=== PATIENT | female | born 1945 | race Caucasian/White ===

== ENCOUNTER 2016-09-04 20:24 | Observation (INO) | payer OTHER ==
[~2016-09-04] VITALS: Ht 167.6 cm; Wt 114.1 kg
[~2016-09-04 20:24] MED LIST: ADVAIR 250/501 DISK IH; ADVAIR HFA120 INHAL1 IH; ALLOPURINOL100 MG PO; AMITRIPTYLINE H25 MG; AMITRIPTYLINE H50 MG PO; AMLODIPINE BESYL5 MG PO; AMOXICILLIN500 MG; AMOXICILLIN500 MG PO; AUGMENTIN875 MG PO; AZITHROMYCIN250 MG; BUMETANIDE1 MG PO; BUMEX1 MG PO; BYDUREON 2 MG; CALCITRIOL0.25 MCG PO; CARTIA XT120 MG PO; CEFTIN250 MG PO; CEPHALEXIN500 MG PO; CIPRO500 MG PO; CIPROFLOXACIN500 M1 PO; CLEOCIN300 MG PO; CLINDAMYCIN HC300 MG PO; CLOBETASOL PROP60 GM TP; COLACE100 MG PO; COLCHICINE0.6 M1 PO; COLCRYS0.6 MG; COLCRYS0.6 MG PO; COUMADIN1 MG PO; COUMADIN4 MG PO; COUMADIN5 MG PO; COUMADIN7.5 MG PO; COZAAR25 MG PO; CYANOCOBAL1000 MCG/2 IM; CYMBALTA30 MG PO; CYMBALTA60 MG PO; DIOVAN HCT 31 TABLE1; DIOVAN40 MG PO; DOCUSATE SODIU100 MG PO; DOK PLUS TABLE1 EACH PO; DULOXETINE HCL30 MG PO; DUONEB 2.5-0.5 M3 ML AEROSOL; DUONEB 2.5-0.5 M3 ML IH; DUREZOL 0.100 DROP/5; ELAVIL25 MG PO; ELAVIL50 MG PO; ENDOCET 5-3251 EACH; ENDOCET 5-3251 EACH PO; ERGOCALCIF50000 UNIT; ERGOCALCIF50000 UNIT PO; ERYTHROMYCIN O3.5 GM RIGHT EYE; ESCITALOPRAM OX20 MG; ESCITALOPRAM OX20 MG PO; EYE DROPS; FERROUS SULFAT324 M1 PO; FLAGYL500 MG; FUROSEMIDE20 MG PO; FUROSEMIDE40 MG; FUROSEMIDE40 MG PO; GABAPENTIN600 MG; GABAPENTIN600 MG PO; HYDROCHLOROTH12.5 M3 PO; HYDROCODON-ACE1 EAC7; HYDROCODON-ACE1 EAC7 PO; IBUPROFEN600 MG PO; INDOMETHACIN50 MG; KEFLEX500 MG PO; LASIX20 MG PO; LASIX40 MG PO; LEVEMIR FL100 UNIT/1 SC; LEVEMIR FL100 UNITS/; LEVEMIR FL100 UNITS/ SC; LEVEMIR100 UNIT/2 SC; LEVOFLOXACIN500 MG; LEVOFLOXACIN500 MG PO; LEXAPRO20 MG PO; LIDOCAINE20 MG/1 M5 PO; LIDODERM 5% P1 PATCH TD; LIDOPRO PATCH1 EACH TP; LISINOPRIL5 MG PO; LOVENOX300 MG/3 M SC; LYRICA150 MG PO; LYRICA50 MG PO; LYRICA75 MG PO; MAGNESIUM OXID200 MG PO; MAGNESIUM400 M1 PO; MIRAPEX0.5 MG PO; MYCOSTATIN15 GM PO; NEURONTIN100 MG PO; NEURONTIN400 MG PO; NORCO 5/3251 TABLET PO; NORVASC5 MG PO; NOVOLOG 10100 UNITS/ SC; NOVOLOG PE100 UNITS/ SC; NOVOLOG100 UNIT/1 SC; NYSTATIN15 G1 TP; OMEPRAZOLE20 MG PO; OMEPRAZOLE40 M1 PO; ONE TOUCH ULTRA TEST; OXYCODONE HCL5 M1 PO; OXYCODONE HCL5 MG PO; PERCOCET 5/31 TABLET PO; PLAVIX75 MG; POLYETHYLENE GL17 GM PO; PRAMIPEXOLE DI0.5 MG; PRAMIPEXOLE DI0.5 MG PO; PRAVACHOL10 MG PO; PRAVASTATIN SOD10 MG; PRAVASTATIN SOD10 MG PO; PRAVASTATIN SOD40 MG PO; PREDNISONE10 MG; PREDNISONE10 MG PO; PRILOSEC20 MG PO; PROAIR HFA8.5 GM IH; PROTONIX40 MG PO; PROVENTIL,2.5 MG/3 M IH; PROVENTIL2.5 MG/3 M IH; REQUIP0.5 MG PO; RESTORIL15 MG PO; SERTRALINE HCL50 MG PO; SPIRIVA RESPIMAT4 GM IH; TEMAZEPAM15 MG; TOBRADEX EYE DRO5 ML RIGHT EYE; TRAMADOL HCL50 MG PO; TYLENOL ARTHRI650 MG PO; TYLENOL EXTRA500 MG PO; VALIUM5 MG PO; VALSARTAN-HCTZ1 EAC3; VALSARTAN160 MG PO; VIBRA-TABS100 MG; VITAMIN C500 M1 PO; WARFARIN SODIU7.5 MG PO; WARFARIN SODIUM5 MG PO; ZOFRAN4 MG PO; ZOLOFT50 MG PO; ZYLOPRIM100 MG PO; [UNRECOGNIZED DRUG - SUPPLY]
[2016-09-05 00:43] LABS: HEMATOCRIT 40.4 % (36.0-46.0); MCH 28.6 PG (29.0-34.0); MCHC 30.9 G/DL (30.0-36.0); MCV 92.4 FL (83-99); MEAN PLAT.VOLUME 10.4 uM^3 (9.5-12.4); PLATELET COUNT 211 K/uL (156-360); RBC DIS.WIDTH-CV 17.9 % (11.8-14.6); RBC DIS.WIDTH-SD 58.1 % (39-53); RED BLOOD COUNT 4.37 M/uL (3.80-5.20); WHITE BLOOD COUNT 7.2 K/uL (4.1-10.2)
[2016-09-05 00:50] LABS: CHLORIDE 102 mEq/L (99-109); POTASSIUM 4.4 mEq/L (3.7-5.4); SODIUM 140 mEq/L (136-147)
[2016-09-05 00:52] LABS: GLUCOSE 197 mg/dL (70-99)
[2016-09-05 00:53] LABS: ANION GAP 14 MEQ/L (2-14)
[2016-09-05 00:56] LABS: GFR ESTIMATE (CALCULATED) 18 mL/min/
[2016-09-05 00:57] LABS: UREA NITROGEN (BUN) 44 mg/dL (9-23)
[2016-09-05 01:13] LABS: TROP-I INTERPRETATION NEGATIVE; TROPONIN-I < 0.01 ng/mL (0.0-0.30)
[2016-09-05 06:26] LABS: INTER. NORMALIZED RATIO 1.3; PROTHROMBIN TIME 13.4 (9.2-11.2); PTT 30.9 (25-32)
[2016-09-05 07:30] VITALS: BP 162/69
[2016-09-05 08:32] LABS: POINT-OF-CARE METER ID UU13113807
[2016-09-05] MEDS ORDERED: NOVOLOG PE100 UNITS/ SC (11:21)
[2016-09-05] MEDS ORDERED: LEVEMIR100 UNIT/2 SC (11:22)
[2016-09-05] MEDS ORDERED: LASIX20 MG PO (11:23)
[2016-09-05] MEDS ORDERED: COUMADIN5 MG PO (11:24)
[2016-09-05 11:45] VITALS: BP 162/88
[2016-09-05 11:48] LABS: POINT-OF-CARE METER ID UU13113807
[2016-09-05 13:12] LABS: TROP-I INTERPRETATION NEGATIVE; TROPONIN-I < 0.01 ng/mL (0.0-0.30)
[2016-09-05 13:49] LABS: ADD MIUA? YES; BILIRUBIN NEGATIVE; BLOOD NEGATIVE; COLOR YELLOW ((YELLOW)); GLUCOSE (STRIP) 250; KETONES NEGATIVE; LEUKOCYTES NEGATIVE; NITRITE NEGATIVE; PH, URINE 6.5 (5-8); PROTEIN (STRIP) 100; SPECIFIC GRAVITY 1.016 (1.000-1.030); UROBILINOGEN 0.2 MG/DL (0.2-1.0)
[2016-09-05 13:55] LABS: BACTERIA NONE SEEN; CASTS NONE SEEN /LPF; CRYSTALS NONE SEEN; EPITHELIAL CELLS RARE; MUCUS NONE SEEN; PATHOLOGICAL CAST NONE SEEN; RED BLOOD CELLS 0-5 /HPF (0-5); SMALL ROUND CELL NONE SEEN; UCUL ADDED? NO; WHITE BLOOD CELLS 0-5 /HPF (0-5); YEAST-LIKE CELL NONE SEEN
[2016-09-05 15:52] VITALS: BP 112/63
[2016-09-05 17:05] LABS: POINT-OF-CARE METER ID UU13113807
[2016-09-05 19:06] LABS: TROP-I INTERPRETATION NEGATIVE; TROPONIN-I < 0.01 ng/mL (0.0-0.30)
[2016-09-05 19:27] LABS: ANION GAP 12 MEQ/L (2-14); CHLORIDE 104 MEQ/L (99-109); GFR ESTIMATE (CALCULATED) 37 mL/min/; GLUCOSE 174 mg/dL (70-99); POTASSIUM 4.2 MEQ/L (3.7-5.4); SAMPLE HEMOLYSIS CHECK 0; SAMPLE ICTERIC CHECK 0; SAMPLE LIPEMIA CHECK 0; SODIUM 143 MEQ/L (136-147); UREA NITROGEN (BUN) 46 mg/dL (9-23); URIC ACID 5.6 mg/dL (3.1-9.2)
[2016-09-05 20:09] LABS: POINT-OF-CARE METER ID UU13113807
[2016-09-05 20:48] VITALS: BP 136/81
[2016-09-06 00:05] VITALS: BP 139/55
[2016-09-06 04:00] VITALS: BP 148/79
[2016-09-06 04:27] LABS: HEMATOCRIT 36.9 % (36.0-46.0); MCH 28.4 PG (29.0-34.0); MCHC 30.9 G/DL (30.0-36.0); MEAN PLAT.VOLUME 10.5 uM^3 (9.5-12.4); PLATELET COUNT 170 K/uL (156-360); RBC DIS.WIDTH-CV 17.7 % (11.8-14.6); RBC DIS.WIDTH-SD 57.2 % (39-53); RED BLOOD COUNT 4.01 M/uL (3.80-5.20); WHITE BLOOD COUNT 6.5 K/uL (4.1-10.2)
[2016-09-06 04:37] LABS: INTER. NORMALIZED RATIO 1.2; PROTHROMBIN TIME 12.2 (9.2-11.2)
[2016-09-06 04:39] LABS: CHLORIDE 108 mEq/L (99-109); POTASSIUM 4.3 mEq/L (3.7-5.4); SODIUM 143 mEq/L (136-147)
[2016-09-06 04:41] LABS: GLUCOSE 251 mg/dL (70-99)
[2016-09-06 04:42] LABS: ANION GAP 11 MEQ/L (2-14)
[2016-09-06 04:45] LABS: GFR ESTIMATE (CALCULATED) 34 mL/min/
[2016-09-06 04:46] LABS: UREA NITROGEN (BUN) 49 mg/dL (9-23)
[2016-09-06 05:47] LABS: IRON 34 MCG/DL (35-150)
[2016-09-06 06:08] LABS: UR CREATININE CONCENTRATION 84.2 MG/DL
[2016-09-06 06:35] LABS: POINT-OF-CARE METER ID UU13113807
[2016-09-06 07:44] LABS: FERRITIN 13 NG/ML (10-291)
[2016-09-06 07:48] LABS: INTACT PARATHYROID HORMONE 142 pg/mL (10-69)
[2016-09-06 08:00] VITALS: BP 126/56
[2016-09-06 08:11] LABS: POINT-OF-CARE METER ID UU13113807
[2016-09-06] MEDS ORDERED: AMOX TR-K CLV1 EAC4 PO (10:45)
[2016-09-06 11:57] VITALS: BP 124/67
[2016-09-06 13:12] LABS: POINT-OF-CARE METER ID UU13113807
== END 2016-09-06 12:51 | disposition home or self-care (01) ==
LOC: EME 20:24 → EDOF 09-05 05:40 → 4SOUTH 09-05 05:40
PROVIDERS: Emergency Medicine; Hospitalist; Internal Medicine; Internal Medicine Nephrology; Student in an Organized Health Care Education/Training Program
DX: M79.89 Other specified soft tissue disorders (principal); L03.115 Cellulitis of right lower limb; N17.9 Acute kidney failure, unspecified; E11.22 Type 2 diabetes mellitus with diabetic chronic kidney disease; N18.3 Chronic kidney disease, stage 3 (moderate); R79.89 Other specified abnormal findings of blood chemistry; R06.09 Other forms of dyspnea; I27.2 Other secondary pulmonary hypertension; E61.1 Iron deficiency; N25.81 Secondary hyperparathyroidism of renal origin; J44.9 Chronic obstructive pulmonary disease, unspecified; I45.9 Conduction disorder, unspecified; G89.29 Other chronic pain; Z86.718 Personal history of other venous thrombosis and embolism; Z79.01 Long term (current) use of anticoagulants; I48.0 Paroxysmal atrial fibrillation; Z95.828 Presence of other vascular implants and grafts; Z95.820 Peripheral vascular angioplasty status with implants and grafts; Z96.643 Presence of artificial hip joint, bilateral; Z82.49 Family history of ischemic heart disease and other diseases of the circulatory system; Z83.3 Family history of diabetes mellitus; Z87.891 Personal history of nicotine dependence; Z95.0 Presence of cardiac pacemaker; Z88.8 Allergy status to other drugs, medicaments and biological substances; Z91.013 Allergy to seafood; Z91.018 Allergy to other foods
CPT/HCPCS: 70490; 71010; 76770; 80048; 80069; 81003; 82306; 82570; 82607; 82728; 82746; 82948; 83540; 83880; 83970; 84156; 84443; 84466; 84484; 84550; 85027; 85610; 85730; 93005; 93970; 94640; 94640 76; 99281; 99285; G0378; J1815; J1940

== ENCOUNTER 2016-09-22 01:14 | Emergency (ER) | payer OTHER ==
[~2016-09-22] VITALS: Ht 167.6 cm; Wt 118.0 kg
[~2016-09-22 01:14] MED LIST changes: +AMOX TR-K CLV1 EAC4 PO
[2016-09-22 02:08] LABS: HEMATOCRIT 34.2 % (36.0-46.0); MCH 28.6 PG (29.0-34.0); MCHC 31.6 G/DL (30.0-36.0); MCV 90.7 FL (83-99); MEAN PLAT.VOLUME 10.8 uM^3 (9.5-12.4); PLATELET COUNT 162 K/uL (156-360); RED BLOOD COUNT 3.77 M/uL (3.80-5.20); WHITE BLOOD COUNT 7.2 K/uL (4.1-10.2)
[2016-09-22 02:15] LABS: CHLORIDE 104 mEq/L (99-109); POTASSIUM 4.9 mEq/L (3.7-5.4); SODIUM 139 mEq/L (136-147)
[2016-09-22 02:17] LABS: GLUCOSE 280 mg/dL (70-99)
[2016-09-22 02:19] LABS: ANION GAP 11 MEQ/L (2-14)
[2016-09-22 02:21] LABS: GFR ESTIMATE (CALCULATED) 30 mL/min/
[2016-09-22 02:28] LABS: TROP-I INTERPRETATION NEGATIVE; TROPONIN-I < 0.01 ng/mL (0.0-0.30)
[2016-09-22 02:30] LABS: UREA NITROGEN (BUN) 53 mg/dL (9-23)
[2016-09-22 02:34] LABS: TOTAL BILIRUBIN 0.3 mg/dL (0.0-1.0)
[2016-09-22 02:35] LABS: ALKALINE PHOSPHATASE 118 IU/L (3-129); INTER. NORMALIZED RATIO 1.5; PROTHROMBIN TIME 15.5 (9.2-11.2)
[2016-09-22 02:38] LABS: DIRECT BILIRUBIN 0.1 mg/dL (0.0-0.3)
[2016-09-22 04:01] VITALS: BP 129/77
== END 2016-09-22 04:04 | disposition home or self-care (01) ==
LOC: EME 01:14
DX: R60.9 Edema, unspecified (principal); N28.9 Disorder of kidney and ureter, unspecified; I25.10 Atherosclerotic heart disease of native coronary artery without angina pectoris; E11.9 Type 2 diabetes mellitus without complications; K21.9 Gastro-esophageal reflux disease without esophagitis; E78.5 Hyperlipidemia, unspecified; I10 Essential (primary) hypertension; Z87.442 Personal history of urinary calculi; Z87.891 Personal history of nicotine dependence; I25.2 Old myocardial infarction; Z86.718 Personal history of other venous thrombosis and embolism; Z96.643 Presence of artificial hip joint, bilateral; Z95.0 Presence of cardiac pacemaker; Z96.611 Presence of right artificial shoulder joint; Z79.4 Long term (current) use of insulin; Z79.01 Long term (current) use of anticoagulants
CPT/HCPCS: 71020; 80048; 80076; 83880; 84484; 85027; 85610; 93005; 99281; 99284; J1940

== ENCOUNTER 2016-10-16 20:16 | Observation (INO) | payer OTHER ==
[~2016-10-16] VITALS: Ht 167.6 cm; Wt 113.0 kg
[2016-10-16 21:18] LABS: HEMATOCRIT 38.5 % (36.0-46.0); MCH 28.5 PG (29.0-34.0); MCHC 31.4 G/DL (30.0-36.0); MCV 90.6 FL (83-99); MEAN PLAT.VOLUME 9.7 uM^3 (9.5-12.4); PLATELET COUNT 208 K/uL (156-360); RBC DIS.WIDTH-CV 16.6 % (11.8-14.6); RED BLOOD COUNT 4.25 M/uL (3.80-5.20)
[2016-10-16 21:19] LABS: WHITE BLOOD COUNT 9.9 K/uL (4.1-10.2)
[2016-10-16 21:24] LABS: CHLORIDE 104 mEq/L (99-109); POTASSIUM 4.5 mEq/L (3.7-5.4); SODIUM 142 mEq/L (136-147)
[2016-10-16 21:25] LABS: GLUCOSE 171 mg/dL (70-99)
[2016-10-16 21:27] LABS: ANION GAP 11 MEQ/L (2-14)
[2016-10-16 21:29] LABS: GFR ESTIMATE (CALCULATED) 20 mL/min/
[2016-10-16 21:30] LABS: UREA NITROGEN (BUN) 59 mg/dL (9-23)
[2016-10-16 21:37] LABS: TROP-I INTERPRETATION NEGATIVE; TROPONIN-I 0.02 ng/mL (0.0-0.30)
[2016-10-16] MEDS ORDERED: WARFARIN SODIUM5 MG PO (23:11)
[2016-10-16] MEDS ORDERED: PRAVASTATIN SOD40 MG PO (23:12)
[2016-10-16] MEDS ORDERED: LEVEMIR FL100 UNIT/1 SC ×2 (23:15→23:19)
[2016-10-17 02:45] LABS: ADD MIUA? NO; BILIRUBIN NEGATIVE; BLOOD NEGATIVE; COLOR STRAW ((YELLOW)); GLUCOSE (STRIP) NEGATIVE; KETONES NEGATIVE; LEUKOCYTES NEGATIVE; NITRITE NEGATIVE; PROTEIN (STRIP) 30; SPECIFIC GRAVITY 1.009 (1.000-1.030); UCUL ADDED? NO; UROBILINOGEN 0.2 MG/DL (0.2-1.0)
[2016-10-17 03:27] VITALS: BP 159/67
[2016-10-17 03:45] LABS: INTER. NORMALIZED RATIO 1.5; PROTHROMBIN TIME 15.8 (9.2-11.2)
[2016-10-17 08:16] LABS: POINT-OF-CARE METER ID UU13113831
[2016-10-17 08:45] VITALS: BP 148/67
[2016-10-17 09:55] LABS: ANION GAP 6 MEQ/L (2-14); CHLORIDE 105 MEQ/L (99-109); POTASSIUM 4.6 MEQ/L (3.7-5.4); SAMPLE HEMOLYSIS CHECK 0; SAMPLE ICTERIC CHECK 0; SAMPLE LIPEMIA CHECK 0; SODIUM 140 MEQ/L (136-147)
[2016-10-17 10:00] LABS: GFR ESTIMATE (CALCULATED) 47 mL/min/; GLUCOSE 128 mg/dL (70-99); UREA NITROGEN (BUN) 47 mg/dL (9-23)
== END 2016-10-17 11:22 | disposition home or self-care (01) ==
LOC: EME 20:16 → EDOF 10-17 01:51 → 5WEST 10-17 02:37
PROVIDERS: Emergency Medicine; Hospitalist; Nurse Practitioner Family
DX: N17.9 Acute kidney failure, unspecified (principal); I13.0 Hypertensive heart and chronic kidney disease with heart failure and stage 1 through stage 4 chronic kidney disease, or unspecified chronic kidney disease; I50.9 Heart failure, unspecified; E11.21 Type 2 diabetes mellitus with diabetic nephropathy; E11.22 Type 2 diabetes mellitus with diabetic chronic kidney disease; N18.9 Chronic kidney disease, unspecified; N25.81 Secondary hyperparathyroidism of renal origin; I48.0 Paroxysmal atrial fibrillation; M79.7 Fibromyalgia; R19.7 Diarrhea, unspecified; R11.2 Nausea with vomiting, unspecified; J44.9 Chronic obstructive pulmonary disease, unspecified; Z95.0 Presence of cardiac pacemaker; I25.2 Old myocardial infarction; Z86.718 Personal history of other venous thrombosis and embolism; F32.9 Major depressive disorder, single episode, unspecified; G89.29 Other chronic pain; K21.9 Gastro-esophageal reflux disease without esophagitis; I73.9 Peripheral vascular disease, unspecified
CPT/HCPCS: 71020; 80048; 81003; 82948; 84484; 85027; 85610; 93005; 94640; 99281; 99285; G0378; J1815; J2060; J7030; J7040

== ENCOUNTER 2016-10-21 19:12 | Emergency (ER) | payer OTHER ==
[~2016-10-21] VITALS: Ht 167.6 cm; Wt 111.4 kg
[2016-10-21 20:18] LABS: INTER. NORMALIZED RATIO 1.1; PROTHROMBIN TIME 10.7 (9.2-11.2)
[2016-10-21 20:23] LABS: CHLORIDE 107 mEq/L (99-109); POTASSIUM 4.4 mEq/L (3.7-5.4); SODIUM 137 mEq/L (136-147)
[2016-10-21 20:25] LABS: GLUCOSE 331 mg/dL (70-99)
[2016-10-21 20:26] LABS: ANION GAP 10 MEQ/L (2-14)
[2016-10-21 20:27] LABS: TOTAL BILIRUBIN 0.4 mg/dL (0.0-1.0)
[2016-10-21 20:28] LABS: ALKALINE PHOSPHATASE 107 IU/L (3-129)
[2016-10-21 20:29] LABS: GFR ESTIMATE (CALCULATED) 40 mL/min/
[2016-10-21 20:30] VITALS: BP 145/78
[2016-10-21 20:30] LABS: TROP-I INTERPRETATION NEGATIVE; TROPONIN-I 0.01 ng/mL (0.0-0.30); UREA NITROGEN (BUN) 55 mg/dL (9-23)
[2016-10-21 20:45] LABS: HEMATOCRIT 34.4 % (36.0-46.0); MCH 28.3 PG (29.0-34.0); MCHC 31.4 G/DL (30.0-36.0); MCV 90.3 FL (83-99); RBC DIS.WIDTH-CV 16.5 % (11.8-14.6); RBC DIS.WIDTH-SD 53.1 % (39-53); RED BLOOD COUNT 3.81 M/uL (3.80-5.20); WHITE BLOOD COUNT 8.8 K/uL (4.1-10.2)
[2016-10-21 20:48] LABS: EOSINOPHIL (%) 2.2 % (0-5); EOSINOPHIL COUNT 0.2 K/uL (0-0.3); IMMATURE GRANULOCYTE (%) 0.2 % (0.0-0.7); IMMATURE GRANULOCYTE COUNT 0.2 K/uL; LYMPHOCYTE COUNT 1.4 K/uL (1.0-2.8); MONOCYTE (%) 9.4 % (3-12); MONOCYTE COUNT 0.8 K/uL (0-0.8); NEUTROPHIL (%) 71.9 % (45-76); NEUTROPHIL COUNT 6.4 K/uL (1.8-6.4)
[2016-10-21] MEDS ORDERED: ALBUTEROL2.5 MG/3 M IH (21:01)
[2016-10-21] MEDS ORDERED: ROBITUSSIN AC,T10 ML PO (21:01)
[2016-10-21 21:18] LABS: MEAN PLAT.VOLUME 10.5 uM^3 (9.5-12.4); PLAT.SUFFICIENCY DECREASED; PLATELET COUNT 127 K/uL (156-360)
== END 2016-10-21 21:54 | disposition home or self-care (01) ==
LOC: EME 19:12
PROVIDERS: Emergency Medicine
DX: J44.1 Chronic obstructive pulmonary disease with (acute) exacerbation (principal); J06.9 Acute upper respiratory infection, unspecified; E11.65 Type 2 diabetes mellitus with hyperglycemia; I10 Essential (primary) hypertension; E78.5 Hyperlipidemia, unspecified; Z79.4 Long term (current) use of insulin; Z79.01 Long term (current) use of anticoagulants; Z86.718 Personal history of other venous thrombosis and embolism; Z95.0 Presence of cardiac pacemaker; Z87.891 Personal history of nicotine dependence
CPT/HCPCS: 71010; 80048; 80053; 83605; 83880; 84484; 85025; 85027; 85610; 87040; 94640; 99281; 99284; J2270; J2405

== ENCOUNTER 2016-10-23 03:19 | Observation (INO) | payer OTHER ==
[~2016-10-23] VITALS: Ht 167.6 cm; Wt 103.2 kg
[~2016-10-23 03:19] MED LIST changes: +ALBUTEROL2.5 MG/3 M IH; +ROBITUSSIN AC,T10 ML PO
[2016-10-23 03:54] LABS: HEMATOCRIT 33.7 % (36.0-46.0); MCH 28.6 PG (29.0-34.0); MCHC 31.2 G/DL (30.0-36.0); MCV 91.8 FL (83-99); MEAN PLAT.VOLUME 10.9 uM^3 (9.5-12.4); PLATELET COUNT 148 K/uL (156-360); RBC DIS.WIDTH-CV 16.5 % (11.8-14.6); RBC DIS.WIDTH-SD 53.2 % (39-53); RED BLOOD COUNT 3.67 M/uL (3.80-5.20); WHITE BLOOD COUNT 9.2 K/uL (4.1-10.2)
[2016-10-23] MEDS ORDERED: AMOX TR-K CLV1 EAC4 PO (03:58)
[2016-10-23] MEDS ORDERED: FUROSEMIDE40 MG PO (03:59)
[2016-10-23 04:06] LABS: CHLORIDE 107 mEq/L (99-109); SODIUM 140 mEq/L (136-147)
[2016-10-23 04:09] LABS: ANION GAP 9 MEQ/L (2-14)
[2016-10-23 04:09] LABS: INTER. NORMALIZED RATIO 1.1; PROTHROMBIN TIME 10.7 (9.2-11.2); PTT 23.3 (25-32)
[2016-10-23 04:12] LABS: GFR ESTIMATE (CALCULATED) 43 mL/min/; UREA NITROGEN (BUN) 55 mg/dL (9-23)
[2016-10-23 04:16] LABS: TROP-I INTERPRETATION NEGATIVE; TROPONIN-I 0.01 ng/mL (0.0-0.30)
[2016-10-23 04:18] LABS: GLUCOSE 127 mg/dL (70-99); POTASSIUM 5.3 mEq/L (3.7-5.4)
[2016-10-23 06:11] VITALS: BP 134/91
[2016-10-23 06:14] VITALS: BP 134/91
[2016-10-23 07:47] VITALS: BP 141/63
[2016-10-23 07:55] LABS: POINT-OF-CARE METER ID UU14162513
[2016-10-23] MEDS ORDERED: PRAVACHOL10 MG PO (12:15)
[2016-10-23] MEDS ORDERED: NORCO 5/3251 TABLET PO (12:18)
[2016-10-23] MEDS ORDERED: ERGOCALCIF50000 UNIT PO (12:19)
[2016-10-23 12:41] VITALS: BP 142/56
[2016-10-23 12:46] LABS: POINT-OF-CARE METER ID UU14162513
[2016-10-23] MEDS ORDERED: DUONEB 2.5-0.5 M3 ML AEROSOL (14:47)
[2016-10-23] MEDS ORDERED: ALBUTEROL2.5 MG/3 M IH (14:47)
== END 2016-10-23 16:18 | disposition home or self-care (01) ==
LOC: EME → EDBD 03:19 → EDOF 04:40 → 5WEST 05:56
PROVIDERS: Emergency Medicine; Hospitalist
DX: J44.1 Chronic obstructive pulmonary disease with (acute) exacerbation (principal); Z91.19 Patient's noncompliance with other medical treatment and regimen; Z99.81 Dependence on supplemental oxygen; I12.9 Hypertensive chronic kidney disease with stage 1 through stage 4 chronic kidney disease, or unspecified chronic kidney disease; N18.3 Chronic kidney disease, stage 3 (moderate); E11.22 Type 2 diabetes mellitus with diabetic chronic kidney disease; I25.10 Atherosclerotic heart disease of native coronary artery without angina pectoris; I48.0 Paroxysmal atrial fibrillation; I27.2 Other secondary pulmonary hypertension; E55.9 Vitamin D deficiency, unspecified; D64.9 Anemia, unspecified; I25.2 Old myocardial infarction; G89.29 Other chronic pain; M79.7 Fibromyalgia; M19.90 Unspecified osteoarthritis, unspecified site; E66.9 Obesity, unspecified; Z68.36 Body mass index [BMI] 36.0-36.9, adult; E78.5 Hyperlipidemia, unspecified; M10.9 Gout, unspecified; I73.9 Peripheral vascular disease, unspecified; G25.81 Restless legs syndrome; Z86.718 Personal history of other venous thrombosis and embolism
CPT/HCPCS: 71010; 80048; 82948; 84484; 85027; 85610; 85730; 93005; 94640; 94640 76; 99202; 99281; 99285; G0378; J1650; J1815; J2930

== ENCOUNTER 2016-12-02 21:19 | Emergency (ER) | payer OTHER ==
[~2016-12-02] VITALS: Ht 167.6 cm; Wt 119.6 kg
[2016-12-02 21:55] LABS: HEMATOCRIT 35.8 % (36.0-46.0); MCH 28.2 PG (29.0-34.0); MCV 90.9 FL (83-99); PLATELET COUNT 179 K/uL (156-360); RBC DIS.WIDTH-CV 16.1 % (11.8-14.6); RBC DIS.WIDTH-SD 53.7 % (39-53); RED BLOOD COUNT 3.94 M/uL (3.80-5.20); WHITE BLOOD COUNT 9.2 K/uL (4.1-10.2)
[2016-12-02 22:08] LABS: CHLORIDE 105 mEq/L (99-109); POTASSIUM 4.6 mEq/L (3.7-5.4); SODIUM 141 mEq/L (136-147)
[2016-12-02 22:09] LABS: GLUCOSE 142 mg/dL (70-99)
[2016-12-02 22:11] LABS: ANION GAP 10 MEQ/L (2-14)
[2016-12-02 22:13] LABS: GFR ESTIMATE (CALCULATED) 40 mL/min/
[2016-12-02 22:14] LABS: UREA NITROGEN (BUN) 54 mg/dL (9-23)
[2016-12-02] MEDS ORDERED: KEFLEX500 MG PO (23:06)
[2016-12-02 23:23] VITALS: BP 149/66
== END 2016-12-02 23:26 | disposition home or self-care (01) ==
LOC: EME 21:19
PROVIDERS: Emergency Medicine
DX: L03.031 Cellulitis of right toe (principal); R60.0 Localized edema; I11.0 Hypertensive heart disease with heart failure; I50.9 Heart failure, unspecified; J45.909 Unspecified asthma, uncomplicated; G89.29 Other chronic pain; E11.9 Type 2 diabetes mellitus without complications; M79.7 Fibromyalgia; E78.5 Hyperlipidemia, unspecified; I25.2 Old myocardial infarction; Z87.442 Personal history of urinary calculi; Z86.718 Personal history of other venous thrombosis and embolism; Z95.0 Presence of cardiac pacemaker; Z96.643 Presence of artificial hip joint, bilateral; Z96.611 Presence of right artificial shoulder joint; Z87.891 Personal history of nicotine dependence
CPT/HCPCS: 80048; 83880; 85027; 99281; 99284; J1940

== ENCOUNTER 2016-12-26 20:25 | Observation (INO) | payer OTHER ==
[~2016-12-26] VITALS: Ht 170.2 cm; Wt 117.5 kg
[2016-12-26 21:39] LABS: EOSINOPHIL (%) 3.7 % (0-5); EOSINOPHIL COUNT 0.3 K/uL (0-0.3); IMMATURE GRANULOCYTE (%) 0.4 % (0.0-0.7); INSTRUMENT ABS NEUTROPHIL CT 5.3 K/uL; LYMPHOCYTE COUNT 1.3 K/uL (1.0-2.8); MCH 27.8 PG (29.0-34.0); MCHC 30.8 G/DL (30.0-36.0); MCV 90.3 FL (83-99); MEAN PLAT.VOLUME 10.4 uM^3 (9.5-12.4); MONOCYTE (%) 7.1 % (3-12); MONOCYTE COUNT 0.5 K/uL (0-0.8); NEUTROPHIL (%) 71.2 % (45-76); NEUTROPHIL COUNT 5.3 K/uL (1.8-6.4); PLATELET COUNT 152 K/uL (156-360); RBC DIS.WIDTH-CV 16.2 % (11.8-14.6); RBC DIS.WIDTH-SD 53.4 % (39-53); RED BLOOD COUNT 4.32 M/uL (3.80-5.20); WHITE BLOOD COUNT 7.5 K/uL (4.1-10.2)
[2016-12-26 21:52] LABS: CHLORIDE 104 mEq/L (99-109); POTASSIUM 4.1 mEq/L (3.7-5.4); SODIUM 141 mEq/L (136-147)
[2016-12-26 21:53] LABS: GLUCOSE 298 mg/dL (70-99)
[2016-12-26 21:55] LABS: ANION GAP 12 MEQ/L (2-14)
[2016-12-26 21:57] LABS: GFR ESTIMATE (CALCULATED) 37 mL/min/
[2016-12-26 21:58] LABS: UREA NITROGEN (BUN) 38 mg/dL (9-23)
[2016-12-26 22:01] LABS: TROP-I INTERPRETATION NEGATIVE; TROPONIN-I 0.02 ng/mL (0.0-0.30)
[2016-12-26 22:26] LABS: D-DIMER ELISA 1.56 mg/L FEU (< 0.57)
[2016-12-27 04:33] LABS: INTER. NORMALIZED RATIO 2.2; PROTHROMBIN TIME 22.7 (9.2-11.2)
[2016-12-27 04:40] LABS: INFLUENZA A VIRAL ANTIGEN NEGATIVE; INFLUENZA B VIRAL ANTIGEN NEGATIVE
[2016-12-27 05:23] VITALS: BP 138/66
[2016-12-27] MEDS ORDERED: SPIRIVA RESPIMAT4 GM IH (11:10)
[2016-12-27 11:34] VITALS: BP 161/72
== END 2016-12-27 15:38 | disposition home health service (06) ==
LOC: EME 20:25 → EDOF 12-27 03:33 → 5WEST 12-27 05:17
PROVIDERS: Emergency Medicine; Hospitalist; Physician Assistant Medical
DX: R06.02 Shortness of breath (principal); M79.89 Other specified soft tissue disorders; Z91.19 Patient's noncompliance with other medical treatment and regimen; R19.7 Diarrhea, unspecified; I48.0 Paroxysmal atrial fibrillation; I27.2 Other secondary pulmonary hypertension; I12.9 Hypertensive chronic kidney disease with stage 1 through stage 4 chronic kidney disease, or unspecified chronic kidney disease; N18.3 Chronic kidney disease, stage 3 (moderate); J44.9 Chronic obstructive pulmonary disease, unspecified; Z99.81 Dependence on supplemental oxygen; E11.40 Type 2 diabetes mellitus with diabetic neuropathy, unspecified; I73.9 Peripheral vascular disease, unspecified; M79.7 Fibromyalgia; G89.29 Other chronic pain; I25.10 Atherosclerotic heart disease of native coronary artery without angina pectoris; M10.9 Gout, unspecified; Z68.41 Body mass index [BMI] 40.0-44.9, adult; E66.01 Morbid (severe) obesity due to excess calories; M19.90 Unspecified osteoarthritis, unspecified site; G25.81 Restless legs syndrome; Z87.891 Personal history of nicotine dependence; Z79.4 Long term (current) use of insulin; Z95.0 Presence of cardiac pacemaker
CPT/HCPCS: 71010; 71275; 80048; 82948; 83880; 84484; 85025; 85379; 85610; 87502; 93005; 93970; 94640; 94640 76; 99202; 99281; 99285; G0378; J1815; J7030

== ENCOUNTER 2017-02-22 10:31 | Emergency (ER) | payer OTHER ==
[~2017-02-22] VITALS: Ht 167.6 cm; Wt 116.6 kg
[2017-02-22 12:11] LABS: ADD MIUA? YES; BILIRUBIN NEGATIVE; BLOOD NEGATIVE; COLOR YELLOW ((YELLOW)); GLUCOSE (STRIP) >=500; KETONES NEGATIVE; LEUKOCYTES TRACE; NITRITE NEGATIVE; PROTEIN (STRIP) 30; SPECIFIC GRAVITY 1.014 (1.000-1.030); UROBILINOGEN 0.2 MG/DL (0.2-1.0)
[2017-02-22 12:42] LABS: EOSINOPHIL (%) 0 % (0-5); HEMATOCRIT 38.8 % (36.0-46.0); IMMATURE GRANULOCYTE (%) 0.8 % (0.0-0.7); IMMATURE GRANULOCYTE COUNT 0.1 K/uL; INSTRUMENT ABS NEUTROPHIL CT 7.4 K/uL; LYMPHOCYTE COUNT 0.4 K/uL (1.0-2.8); MCHC 31.4 G/DL (30.0-36.0); MEAN PLAT.VOLUME 10.3 uM^3 (9.5-12.4); MONOCYTE (%) 1.5 % (3-12); MONOCYTE COUNT 0.1 K/uL (0-0.8); NEUTROPHIL COUNT 7.4 K/uL (1.8-6.4); PLATELET COUNT 168 K/uL (156-360); RBC DIS.WIDTH-SD 54.5 % (39-53); RED BLOOD COUNT 4.36 M/uL (3.80-5.20); WHITE BLOOD COUNT 7.9 K/uL (4.1-10.2)
[2017-02-22 12:44] LABS: CARBON DIOXIDE (BICARBONATE) 34.1 MEQ/L (20-31)
[2017-02-22 12:56] LABS: CHLORIDE 98 mEq/L (99-109); POTASSIUM 4.1 mEq/L (3.7-5.4); SODIUM 135 mEq/L (136-147)
[2017-02-22 12:57] LABS: GLUCOSE 378 mg/dL (70-99)
[2017-02-22 12:58] LABS: BACTERIA 2+ /HPF; EPITHELIAL CELLS RARE /HPF; MUCUS NONE SEEN /LPF; RED BLOOD CELLS 0-5 /HPF (0-5)
[2017-02-22 12:59] LABS: ANION GAP 8 MEQ/L (2-14)
[2017-02-22 13:01] LABS: GFR ESTIMATE (CALCULATED) 32 mL/min/
[2017-02-22 13:02] LABS: UREA NITROGEN (BUN) 63 mg/dL (9-23)
[2017-02-22 14:30] LABS: POINT-OF-CARE METER ID UU13113747
[2017-02-22 14:37] LABS: POINT-OF-CARE METER ID UU13113778
[2017-02-22 15:15] VITALS: BP 140/60
== END 2017-02-22 15:16 | disposition home or self-care (01) ==
LOC: EME 10:31
PROVIDERS: Emergency Medicine
DX: E11.65 Type 2 diabetes mellitus with hyperglycemia (principal); E86.0 Dehydration; I12.9 Hypertensive chronic kidney disease with stage 1 through stage 4 chronic kidney disease, or unspecified chronic kidney disease; N18.9 Chronic kidney disease, unspecified; I25.2 Old myocardial infarction; K21.9 Gastro-esophageal reflux disease without esophagitis; J44.9 Chronic obstructive pulmonary disease, unspecified; J45.909 Unspecified asthma, uncomplicated; E78.5 Hyperlipidemia, unspecified; E11.40 Type 2 diabetes mellitus with diabetic neuropathy, unspecified; E11.22 Type 2 diabetes mellitus with diabetic chronic kidney disease; Z79.01 Long term (current) use of anticoagulants; Z87.442 Personal history of urinary calculi; Z79.4 Long term (current) use of insulin; Z87.891 Personal history of nicotine dependence
CPT/HCPCS: 80048; 81003; 82803; 82948; 85025; 99281; 99285; J7030

== ENCOUNTER 2017-03-26 15:35 | Inpatient (IN) | payer OTHER ==
[~2017-03-26] VITALS: Ht 175.3 cm; Wt 112.5 kg
[~2017-03-26 15:35] MED LIST changes: +PRAVACHOL40 MG PO
[2017-03-26 16:48] LABS: HEMATOCRIT 39.5 % (36.0-46.0); MCH 28.7 PG (29.0-34.0); MCHC 31.9 G/DL (30.0-36.0); MEAN PLAT.VOLUME 11.5 uM^3 (9.5-12.4); PLATELET COUNT 198 K/uL (156-360); RBC DIS.WIDTH-CV 17.2 % (11.8-14.6); RBC DIS.WIDTH-SD 57.2 % (39-53); RED BLOOD COUNT 4.39 M/uL (3.80-5.20); WHITE BLOOD COUNT 11.1 K/uL (4.1-10.2)
[2017-03-26 17:04] LABS: CHLORIDE 102 mEq/L (99-109); POTASSIUM 5.7 mEq/L (3.7-5.4); SODIUM 137 mEq/L (136-147)
[2017-03-26 17:06] LABS: GLUCOSE 200 mg/dL (70-99)
[2017-03-26 17:07] LABS: ANION GAP 19 MEQ/L (2-14)
[2017-03-26 17:10] LABS: GFR ESTIMATE (CALCULATED) 22 mL/min/
[2017-03-26 17:11] LABS: UREA NITROGEN (BUN) 53 mg/dL (9-23)
[2017-03-26 18:25] LABS: PATIENT PT 30.9 SEC
[2017-03-26 18:26] LABS: INTER. NORMALIZED RATIO 2.7; PROTHROMBIN TIME 30.9 SEC (10.2-12.9); PTT 37.5 SEC (25-37)
[2017-03-26 18:39] LABS: MAGNESIUM 1.9 mg/dL (1.3-2.7)
[2017-03-26 18:48] LABS: ADD MIUA? YES; BILIRUBIN NEGATIVE; BLOOD NEGATIVE; COLOR STRAW ((YELLOW)); GLUCOSE (STRIP) NEGATIVE; KETONES NEGATIVE; LEUKOCYTES TRACE; NITRITE NEGATIVE; PROTEIN (STRIP) NEGATIVE; SPECIFIC GRAVITY 1.009 (1.000-1.030); UROBILINOGEN 0.2 MG/DL (0.2-1.0)
[2017-03-26 19:02] LABS: BACTERIA RARE /HPF; EPITHELIAL CELLS RARE /HPF; HYALINE CASTS 0-5 /LPF; MUCUS TRACE /LPF; RED BLOOD CELLS 0-5 /HPF (0-5); UCUL ADDED? NO; WHITE BLOOD CELLS 0-5 /HPF (0-5)
[2017-03-26] MEDS ORDERED: TRADJENTA5 MG PO (20:26)
[2017-03-26] MEDS ORDERED: TRAMADOL HCL50 MG PO (20:28)
[2017-03-26] MEDS ORDERED: KEFLEX500 MG PO (20:29)
[2017-03-26] MEDS ORDERED: ROCALTROL0.25 MCG PO (20:35)
[2017-03-26 22:58] VITALS: BP 151/63
[2017-03-26 23:18] LABS: POINT-OF-CARE METER ID UU14208750
[2017-03-27 04:25] VITALS: BP 153/71
[2017-03-27 06:18] LABS: HEMATOCRIT 33.2 % (36.0-46.0); MCH 29.8 PG (29.0-34.0); MCHC 32.2 G/DL (30.0-36.0); MCV 92.5 FL (83-99); MEAN PLAT.VOLUME 11.3 uM^3 (9.5-12.4); PLATELET COUNT 153 K/uL (156-360); RBC DIS.WIDTH-CV 17.4 % (11.8-14.6); RBC DIS.WIDTH-SD 58.5 % (39-53); RED BLOOD COUNT 3.59 M/uL (3.80-5.20); WHITE BLOOD COUNT 7.9 K/uL (4.1-10.2)
[2017-03-27 06:25] LABS: POINT-OF-CARE METER ID UU14208750
[2017-03-27 06:44] LABS: INTER. NORMALIZED RATIO 3.2; PROTHROMBIN TIME 36.7 SEC (10.2-12.9)
[2017-03-27 06:50] VITALS: BP 139/63
[2017-03-27 07:32] LABS: ANION GAP 8 MEQ/L (2-14); CHLORIDE 105 MEQ/L (99-109); SAMPLE HEMOLYSIS CHECK 0; SAMPLE ICTERIC CHECK 0; SAMPLE LIPEMIA CHECK 0; SODIUM 141 MEQ/L (136-147); TOTAL BILIRUBIN 0.2 MG/DL (0.0-1.0)
[2017-03-27 07:35] LABS: POTASSIUM 4.1 MEQ/L (3.7-5.4)
[2017-03-27 07:37] LABS: ALKALINE PHOSPHATASE 88 IU/L (3-129); GFR ESTIMATE (CALCULATED) 40 mL/min/; GLUCOSE 216 mg/dL (70-99); UREA NITROGEN (BUN) 46 mg/dL (9-23)
[2017-03-27 10:20] VITALS: BP 122/56
[2017-03-27 16:38] VITALS: BP 144/63
[2017-03-27 17:04] LABS: POINT-OF-CARE METER ID UU14208750
[2017-03-27 20:50] VITALS: BP 127/61
[2017-03-27 21:57] LABS: POINT-OF-CARE METER ID UU14208750
[2017-03-27 23:26] VITALS: BP 154/67
[2017-03-28 06:19] LABS: POINT-OF-CARE METER ID UU14208750
[2017-03-28 07:07] LABS: HEMATOCRIT 37.9 % (36.0-46.0); MCV 92.4 FL (83-99)
[2017-03-28 07:12] LABS: INTER. NORMALIZED RATIO 3.6; PROTHROMBIN TIME 41.8 SEC (10.2-12.9)
[2017-03-28 07:40] VITALS: BP 143/65
[2017-03-28 11:46] LABS: POINT-OF-CARE METER ID UU14208750
[2017-03-28 15:20] VITALS: BP 137/61
[2017-03-28 16:42] LABS: POINT-OF-CARE METER ID UU14208750
[2017-03-28 21:20] LABS: POINT-OF-CARE METER ID UU14208750
[2017-03-29 00:09] VITALS: BP 142/63
[2017-03-29 06:45] VITALS: BP 158/63
[2017-03-29 06:51] LABS: INTER. NORMALIZED RATIO 3.1
[2017-03-29 06:52] LABS: POINT-OF-CARE METER ID UU14208750
[2017-03-29 07:20] LABS: EOSINOPHIL (%) 3.6 % (0-5); EOSINOPHIL COUNT 0.3 K/uL (0-0.3); IMMATURE GRANULOCYTE (%) 0.8 % (0.0-0.7); IMMATURE GRANULOCYTE COUNT 0.1 K/uL; INSTRUMENT ABS NEUTROPHIL CT 5.2 K/uL; LYMPHOCYTE COUNT 1.2 K/uL (1.0-2.8); MCH 28.7 PG (29.0-34.0); MCHC 31.5 G/DL (30.0-36.0); MCV 90.9 FL (83-99); MEAN PLAT.VOLUME 10.9 uM^3 (9.5-12.4); MONOCYTE (%) 8.2 % (3-12); MONOCYTE COUNT 0.6 K/uL (0-0.8); NEUTROPHIL (%) 70.4 % (45-76); NEUTROPHIL COUNT 5.2 K/uL (1.8-6.4); PLATELET COUNT 142 K/uL (156-360); RBC DIS.WIDTH-SD 56.9 % (39-53); RED BLOOD COUNT 3.63 M/uL (3.80-5.20); WHITE BLOOD COUNT 7.3 K/uL (4.1-10.2)
[2017-03-29 07:34] LABS: ANION GAP 9 MEQ/L (2-14); CHLORIDE 109 MEQ/L (99-109); GFR ESTIMATE (CALCULATED) 47 mL/min/; GLUCOSE 168 mg/dL (70-99); POTASSIUM 4.3 MEQ/L (3.7-5.4); SAMPLE HEMOLYSIS CHECK 0; SAMPLE ICTERIC CHECK 0; SAMPLE LIPEMIA CHECK 0; SODIUM 143 MEQ/L (136-147); UREA NITROGEN (BUN) 31 mg/dL (9-23)
[2017-03-29 12:13] LABS: POINT-OF-CARE METER ID UU14208750
[2017-03-29 16:43] LABS: POINT-OF-CARE METER ID UU14208750
[2017-03-29 16:59] VITALS: BP 135/62
[2017-03-29 21:31] LABS: POINT-OF-CARE METER ID UU14208750
[2017-03-30] VITALS: BP 143/82
[2017-03-30 06:15] LABS: POINT-OF-CARE METER ID UU14208750
[2017-03-30 06:36] LABS: EOSINOPHIL (%) 3.1 % (0-5); EOSINOPHIL COUNT 0.3 K/uL (0-0.3); HEMATOCRIT 37.4 % (36.0-46.0); IMMATURE GRANULOCYTE (%) 0.9 % (0.0-0.7); IMMATURE GRANULOCYTE COUNT 0.1 K/uL; INSTRUMENT ABS NEUTROPHIL CT 5.8 K/uL; LYMPHOCYTE COUNT 1.3 K/uL (1.0-2.8); MCH 29.4 PG (29.0-34.0); MCHC 31.6 G/DL (30.0-36.0); MCV 93.3 FL (83-99); MEAN PLAT.VOLUME 11.1 uM^3 (9.5-12.4); MONOCYTE (%) 7.6 % (3-12); MONOCYTE COUNT 0.6 K/uL (0-0.8); NEUTROPHIL (%) 72.4 % (45-76); NEUTROPHIL COUNT 5.8 K/uL (1.8-6.4); PLATELET COUNT 157 K/uL (156-360); RBC DIS.WIDTH-CV 17.1 % (11.8-14.6); RBC DIS.WIDTH-SD 57.9 % (39-53); RED BLOOD COUNT 4.01 M/uL (3.80-5.20); WHITE BLOOD COUNT 8.1 K/uL (4.1-10.2)
[2017-03-30 06:38] LABS: INTER. NORMALIZED RATIO 2.8
[2017-03-30 08:00] VITALS: BP 135/62
[2017-03-30 11:49] LABS: POINT-OF-CARE METER ID UU14208750
[2017-03-30] MEDS ORDERED: COUMADIN2 MG PO ×3 (14:36→14:39)
[2017-03-30] MEDS ORDERED: KEFLEX500 MG PO (14:36)
== END 2017-03-30 15:28 | disposition home or self-care (01) | DRG 683 ==
LOC: EME 15:35 → 2EAST 20:16 → EDOF 20:16 → ENRESERV 20:20 → 2EAST 22:49
PROVIDERS: Internal Medicine; Physician Assistant; Student in an Organized Health Care Education/Training Program
DX: N17.9 Acute kidney failure, unspecified (principal); L03.115 Cellulitis of right lower limb; I25.10 Atherosclerotic heart disease of native coronary artery without angina pectoris; E11.22 Type 2 diabetes mellitus with diabetic chronic kidney disease; E66.01 Morbid (severe) obesity due to excess calories; N18.3 Chronic kidney disease, stage 3 (moderate); Z99.81 Dependence on supplemental oxygen; Z91.14 Patient's other noncompliance with medication regimen; Z87.891 Personal history of nicotine dependence; M79.7 Fibromyalgia; I13.0 Hypertensive heart and chronic kidney disease with heart failure and stage 1 through stage 4 chronic kidney disease, or unspecified chronic kidney disease; E86.0 Dehydration; E87.5 Hyperkalemia; I25.2 Old myocardial infarction; I50.9 Heart failure, unspecified; Z96.643 Presence of artificial hip joint, bilateral; Z95.0 Presence of cardiac pacemaker; J44.9 Chronic obstructive pulmonary disease, unspecified; E78.5 Hyperlipidemia, unspecified; G89.29 Other chronic pain; M10.9 Gout, unspecified; Z66 Do not resuscitate; Z68.36 Body mass index [BMI] 36.0-36.9, adult; Z79.01 Long term (current) use of anticoagulants; E11.65 Type 2 diabetes mellitus with hyperglycemia; E11.51 Type 2 diabetes mellitus with diabetic peripheral angiopathy without gangrene; Z96.611 Presence of right artificial shoulder joint; Z89.429 Acquired absence of other toe(s), unspecified side
CPT/HCPCS: 80048; 80053; 81003; 82010; 82948; 83605; 83735; 85014; 85018; 85025; 85027; 85610; 85730; 87040; 93005; 93970; 99202; 99281; 99285; J0690; J1815; J2270; J3010; J3370; J7030; J7040

== ENCOUNTER 2017-04-28 23:09 | Observation (INO) | payer OTHER ==
[~2017-04-28] VITALS: Ht 170.2 cm; Wt 112.5 kg
[~2017-04-28 23:09] MED LIST changes: +COUMADIN2 MG PO; +ROCALTROL0.25 MCG PO; +TRADJENTA5 MG PO
[2017-04-28 23:54] LABS: HEMATOCRIT 37.3 % (36.0-46.0); MCH 29.2 PG (29.0-34.0); MCHC 31.6 G/DL (30.0-36.0); MCV 92.3 FL (83-99); MEAN PLAT.VOLUME 10.8 uM^3 (9.5-12.4); PLATELET COUNT 160 K/uL (156-360); RBC DIS.WIDTH-CV 16.1 % (11.8-14.6); RBC DIS.WIDTH-SD 55.2 % (39-53); RED BLOOD COUNT 4.04 M/uL (3.80-5.20); WHITE BLOOD COUNT 9.4 K/uL (4.1-10.2)
[2017-04-29 00:04] LABS: CHLORIDE 105 mEq/L (99-109); POTASSIUM 4.2 mEq/L (3.7-5.4); SODIUM 140 mEq/L (136-147)
[2017-04-29 00:06] LABS: GLUCOSE 155 mg/dL (70-99)
[2017-04-29 00:08] LABS: ANION GAP 8 MEQ/L (2-14); TOTAL BILIRUBIN 0.2 mg/dL (0.0-1.0)
[2017-04-29 00:10] LABS: ALKALINE PHOSPHATASE 140 IU/L (3-129); GFR ESTIMATE (CALCULATED) 43 mL/min/
[2017-04-29 00:11] LABS: UREA NITROGEN (BUN) 57 mg/dL (9-23)
[2017-04-29 00:14] LABS: LIPASE 69 U/L (1.0-51.0)
[2017-04-29 00:16] LABS: TROP-I INTERPRETATION NEGATIVE; TROPONIN-I 0.02 ng/mL (0.0-0.30)
[2017-04-29 01:42] LABS: ADD MIUA? NO; BILIRUBIN NEGATIVE; BLOOD NEGATIVE; COLOR STRAW ((YELLOW)); GLUCOSE (STRIP) NEGATIVE; KETONES NEGATIVE; LEUKOCYTES NEGATIVE; NITRITE NEGATIVE; PROTEIN (STRIP) 30; SPECIFIC GRAVITY 1.013 (1.000-1.030); UCUL ADDED? NO; UROBILINOGEN 0.2 MG/DL (0.2-1.0)
[2017-04-29 04:40] LABS: INTER. NORMALIZED RATIO 1.1; PROTHROMBIN TIME 11.6 SEC (10.2-12.9)
[2017-04-29 04:50] LABS: CREATINE KINASE 60 IU/L (1-294)
[2017-04-29 05:33] VITALS: BP 135/85
[2017-04-29 08:00] VITALS: BP 132/78
[2017-04-29 08:33] LABS: POINT-OF-CARE METER ID UU13113831
[2017-04-29 11:54] VITALS: BP 147/69
[2017-04-29 12:27] LABS: POINT-OF-CARE METER ID UU14162513
[2017-04-29 13:01] LABS: TROP-I INTERPRETATION NEGATIVE; TROPONIN-I 0.02 ng/mL (0.0-0.30)
[2017-04-29 16:06] VITALS: BP 133/85
[2017-04-29 17:47] LABS: POINT-OF-CARE METER ID UU13113700
[2017-04-29 20:39] VITALS: BP 137/59
[2017-04-29 21:41] LABS: POINT-OF-CARE METER ID UU13113700
[2017-04-30 00:01] VITALS: BP 128/77
[2017-04-30 06:01] LABS: INTER. NORMALIZED RATIO 1.1
[2017-04-30 07:35] LABS: POINT-OF-CARE METER ID UU13113831
[2017-04-30 08:22] VITALS: BP 128/67
[2017-04-30] MEDS ORDERED: LOVENOX120 MG/0.8 SC (11:41)
[2017-04-30] MEDS ORDERED: COUMADIN5 MG PO ×2 (11:42→11:55)
[2017-04-30] MEDS ORDERED: BACLOFEN10 MG PO (11:44)
[2017-04-30] MEDS ORDERED: ENDOCET 5-3251 EACH PO (11:44)
[2017-04-30] MEDS ORDERED: SPIRIVA1 INHALATI IH (11:55)
[2017-04-30] MEDS ORDERED: BYDUREON P2 MG/0.65 SC (11:55)
[2017-04-30] MEDS ORDERED: VITAMIN D5000 UNI1 PO (11:58)
[2017-04-30 12:25] LABS: POINT-OF-CARE METER ID UU13113831
== END 2017-04-30 15:42 | disposition home or self-care (01) ==
LOC: EME → EDBD 23:09 → EME 23:09 → EDOF 04-29 03:57 → 5WEST 04-29 03:57 → ENRESERV 04-29 04:01 → 5WEST 04-29 05:15 → ENPENDDIS 04-30 → 5WEST 04-30 15:42
PROVIDERS: Emergency Medicine; Hospitalist; Physician Assistant Medical
DX: G89.29 Other chronic pain (principal); I12.9 Hypertensive chronic kidney disease with stage 1 through stage 4 chronic kidney disease, or unspecified chronic kidney disease; E11.22 Type 2 diabetes mellitus with diabetic chronic kidney disease; N18.3 Chronic kidney disease, stage 3 (moderate); J44.1 Chronic obstructive pulmonary disease with (acute) exacerbation; M54.16 Radiculopathy, lumbar region; M79.7 Fibromyalgia; I44.2 Atrioventricular block, complete; D68.9 Coagulation defect, unspecified; Z99.81 Dependence on supplemental oxygen; I25.10 Atherosclerotic heart disease of native coronary artery without angina pectoris; I48.0 Paroxysmal atrial fibrillation; Z86.718 Personal history of other venous thrombosis and embolism; Z79.01 Long term (current) use of anticoagulants; Z91.19 Patient's noncompliance with other medical treatment and regimen; Z95.0 Presence of cardiac pacemaker; E78.5 Hyperlipidemia, unspecified; E11.40 Type 2 diabetes mellitus with diabetic neuropathy, unspecified; E55.9 Vitamin D deficiency, unspecified; I73.9 Peripheral vascular disease, unspecified; I27.2 Other secondary pulmonary hypertension; N25.81 Secondary hyperparathyroidism of renal origin; K21.9 Gastro-esophageal reflux disease without esophagitis; Z91.81 History of falling; Z87.891 Personal history of nicotine dependence; Z96.643 Presence of artificial hip joint, bilateral; E11.21 Type 2 diabetes mellitus with diabetic nephropathy; G25.81 Restless legs syndrome; Z66 Do not resuscitate; Z79.4 Long term (current) use of insulin; Z82.49 Family history of ischemic heart disease and other diseases of the circulatory system; Z84.1 Family history of disorders of kidney and ureter
CPT/HCPCS: 71020; 80053; 81003; 82550; 82948; 83690; 83880; 84484; 85027; 85379; 85610; 93005; 99281; 99284; G0378; J1170; J1650; J2270; J2405; J3010; J7030

== ENCOUNTER 2017-05-15 18:00 | Emergency (ER) | payer OTHER ==
[~2017-05-15] VITALS: Ht 167.6 cm; Wt 108.1 kg
[~2017-05-15 18:00] MED LIST changes: +BACLOFEN10 MG PO; +BYDUREON P2 MG/0.65 SC; +LOVENOX120 MG/0.8 SC; +SPIRIVA1 INHALATI IH; +VITAMIN D5000 UNI1 PO
[2017-05-15 20:03] LABS: HEMATOCRIT 36.6 % (36.0-46.0); MCH 29.3 PG (29.0-34.0); MCHC 31.4 G/DL (30.0-36.0); MCV 93.1 FL (83-99); PLATELET COUNT 184 K/uL (156-360); RBC DIS.WIDTH-CV 15.8 % (11.8-14.6); RBC DIS.WIDTH-SD 54.2 % (39-53); RED BLOOD COUNT 3.93 M/uL (3.80-5.20); WHITE BLOOD COUNT 11.7 K/uL (4.1-10.2)
[2017-05-15 20:30] LABS: INTER. NORMALIZED RATIO 3.5; PROTHROMBIN TIME 40.1 SEC (10.2-12.9)
[2017-05-15 20:35] LABS: CHLORIDE 106 mEq/L (99-109); POTASSIUM 4.6 mEq/L (3.7-5.4); SODIUM 142 mEq/L (136-147)
[2017-05-15 20:38] LABS: GLUCOSE 178 mg/dL (70-99)
[2017-05-15 20:39] LABS: ANION GAP 9 MEQ/L (2-14); TOTAL BILIRUBIN 0.2 mg/dL (0.0-1.0)
[2017-05-15 20:41] LABS: ALKALINE PHOSPHATASE 132 IU/L (3-129); GFR ESTIMATE (CALCULATED) 37 mL/min/
[2017-05-15 20:42] LABS: UREA NITROGEN (BUN) 47 mg/dL (9-23)
[2017-05-15 20:49] LABS: TROP-I INTERPRETATION NEGATIVE; TROPONIN-I 0.02 ng/mL (0.0-0.30)
[2017-05-15] MEDS ORDERED: PERCOCET 5/31 TABLET PO (22:03)
[2017-05-15 23:32] LABS: BASE EXCESS 2.6 mEq/L (-3 to +3); BICARBONATE 28.8 mEq/L (22-26); CARBOXY HGB 1.9 % (0-5); COMMENTS - BLOOD GASES A+C+; DEVICE ROOMAIR; METHEMOGLOBIN 0.8 % (0-1.5); PCO2 51 mm Hg (35-45); PO2 58 mm Hg (80-100); SITE RR; pH 7.36 (7.35-7.45)
[2017-05-15 23:33] LABS: FI02 0.21 %; TOTAL RESP RATE 16 resp/min
[2017-05-15 23:34] LABS: POINT-OF-CARE METER ID UU13113800
[2017-05-16 00:17] VITALS: BP 156/72
== END 2017-05-16 00:18 | disposition left against medical advice (07) ==
LOC: EME 18:00
PROVIDERS: Emergency Medicine; Nurse Practitioner Family
DX: S32.2XXA Fracture of coccyx, initial encounter for closed fracture (principal); S20.212A Contusion of left front wall of thorax, initial encounter; M54.2 Cervicalgia; W07.XXXA Fall from chair, initial encounter; M79.7 Fibromyalgia; E11.22 Type 2 diabetes mellitus with diabetic chronic kidney disease; I12.9 Hypertensive chronic kidney disease with stage 1 through stage 4 chronic kidney disease, or unspecified chronic kidney disease; N18.9 Chronic kidney disease, unspecified; Z79.4 Long term (current) use of insulin; Z96.643 Presence of artificial hip joint, bilateral; Z95.0 Presence of cardiac pacemaker; Z79.01 Long term (current) use of anticoagulants; Z86.718 Personal history of other venous thrombosis and embolism; E78.5 Hyperlipidemia, unspecified; I25.2 Old myocardial infarction; Z96.611 Presence of right artificial shoulder joint; J44.9 Chronic obstructive pulmonary disease, unspecified; M10.9 Gout, unspecified; Z87.891 Personal history of nicotine dependence; Z87.442 Personal history of urinary calculi
CPT/HCPCS: 36600; 70450; 71020; 71250; 72125; 72220; 80053; 82803; 82948; 84484; 85027; 85610; 93005; 99281; 99284; J2310; J3010

== ENCOUNTER 2017-06-11 15:35 | Observation (INO) | payer OTHER ==
[~2017-06-11] VITALS: Ht 167.6 cm; Wt 110.0 kg
[2017-06-11 17:16] LABS: ADD MIUA? YES; BILIRUBIN NEGATIVE; BLOOD NEGATIVE; COLOR STRAW ((YELLOW)); GLUCOSE (STRIP) NEGATIVE; KETONES NEGATIVE; LEUKOCYTES TRACE; NITRITE NEGATIVE; PROTEIN (STRIP) 30; UROBILINOGEN 0.2 MG/DL (0.2-1.0)
[2017-06-11 17:24] LABS: BACTERIA NONE SEEN /HPF; EPITHELIAL CELLS 1+ /HPF; HYALINE CASTS 0-5 /LPF; MUCUS TRACE /LPF; RED BLOOD CELLS 0-5 /HPF (0-5); UCUL ADDED? NO; WHITE BLOOD CELLS 0-5 /HPF (0-5)
[2017-06-11 18:35] LABS: HEMATOCRIT 37.9 % (36.0-46.0); MCH 29.1 PG (29.0-34.0); MCHC 31.4 G/DL (30.0-36.0); MCV 92.7 FL (83-99); PLATELET COUNT 176 K/uL (156-360); RBC DIS.WIDTH-SD 54.3 % (39-53); RED BLOOD COUNT 4.09 M/uL (3.80-5.20); WHITE BLOOD COUNT 11.1 K/uL (4.1-10.2)
[2017-06-11 18:42] LABS: INTER. NORMALIZED RATIO 2.5; PROTHROMBIN TIME 28.1 SEC (10.2-12.9)
[2017-06-11 18:45] LABS: CHLORIDE 106 mEq/L (99-109); POTASSIUM 4.4 mEq/L (3.7-5.4); PTT 37.9 SEC (25-37); SODIUM 139 mEq/L (136-147)
[2017-06-11 18:48] LABS: GLUCOSE 191 mg/dL (70-99)
[2017-06-11 18:49] LABS: ANION GAP 10 MEQ/L (2-14)
[2017-06-11 18:50] LABS: TOTAL BILIRUBIN 0.3 mg/dL (0.0-1.0)
[2017-06-11 18:51] LABS: ALKALINE PHOSPHATASE 176 IU/L (3-129); GFR ESTIMATE (CALCULATED) 52 mL/min/
[2017-06-11 18:52] LABS: UREA NITROGEN (BUN) 40 mg/dL (9-23)
[2017-06-11 22:26] VITALS: BP 137/84
[2017-06-12 03:38] VITALS: BP 133/71
[2017-06-12 06:02] LABS: EOSINOPHIL (%) 2.5 % (0-5); EOSINOPHIL COUNT 0.2 K/uL (0-0.3); HEMATOCRIT 35.2 % (36.0-46.0); IMMATURE GRANULOCYTE (%) 0.7 % (0.0-0.7); IMMATURE GRANULOCYTE COUNT 0.1 K/uL; INSTRUMENT ABS NEUTROPHIL CT 7.5 K/uL; LYMPHOCYTE COUNT 0.9 K/uL (1.0-2.8); MCH 29.7 PG (29.0-34.0); MCHC 31.5 G/DL (30.0-36.0); MCV 94.1 FL (83-99); MEAN PLAT.VOLUME 11.1 uM^3 (9.5-12.4); MONOCYTE (%) 7.8 % (3-12); MONOCYTE COUNT 0.7 K/uL (0-0.8); NEUTROPHIL (%) 79.5 % (45-76); NEUTROPHIL COUNT 7.5 K/uL (1.8-6.4); PLATELET COUNT 163 K/uL (156-360); RED BLOOD COUNT 3.74 M/uL (3.80-5.20); WHITE BLOOD COUNT 9.5 K/uL (4.1-10.2)
[2017-06-12 06:30] LABS: ANION GAP 9 MEQ/L (2-14); CHLORIDE 101 MEQ/L (99-109); GFR ESTIMATE (CALCULATED) 52 mL/min/; GLUCOSE 268 mg/dL (70-99); POTASSIUM 4.7 MEQ/L (3.7-5.4); SAMPLE HEMOLYSIS CHECK 0; SAMPLE ICTERIC CHECK 0; SAMPLE LIPEMIA CHECK 0; SODIUM 140 MEQ/L (136-147); UREA NITROGEN (BUN) 37 mg/dL (9-23)
[2017-06-12 07:01] VITALS: BP 163/73
== END 2017-06-12 12:48 | disposition home or self-care (01) ==
LOC: EME 15:35 → 5SOUTH 21:16 → EDOF 21:16 → 5SOUTH 21:16 → ENRESERV 21:18 → 5SOUTH 22:15
PROVIDERS: Hospitalist; Physician Assistant
DX: E11.40 Type 2 diabetes mellitus with diabetic neuropathy, unspecified (principal); E11.51 Type 2 diabetes mellitus with diabetic peripheral angiopathy without gangrene; I83.893 Varicose veins of bilateral lower extremities with other complications; I13.0 Hypertensive heart and chronic kidney disease with heart failure and stage 1 through stage 4 chronic kidney disease, or unspecified chronic kidney disease; I50.9 Heart failure, unspecified; N18.9 Chronic kidney disease, unspecified; E11.22 Type 2 diabetes mellitus with diabetic chronic kidney disease; Z79.4 Long term (current) use of insulin; J44.9 Chronic obstructive pulmonary disease, unspecified; Z99.81 Dependence on supplemental oxygen; I48.91 Unspecified atrial fibrillation; E78.5 Hyperlipidemia, unspecified; I25.2 Old myocardial infarction; K21.9 Gastro-esophageal reflux disease without esophagitis; M79.7 Fibromyalgia; E66.01 Morbid (severe) obesity due to excess calories; Z68.39 Body mass index [BMI] 39.0-39.9, adult; G89.28 Other chronic postprocedural pain; M54.5 Low back pain; M10.9 Gout, unspecified; F32.9 Major depressive disorder, single episode, unspecified; F41.9 Anxiety disorder, unspecified; Z66 Do not resuscitate; Z79.01 Long term (current) use of anticoagulants; Z95.0 Presence of cardiac pacemaker; Z95.820 Peripheral vascular angioplasty status with implants and grafts; Z96.643 Presence of artificial hip joint, bilateral; Z96.611 Presence of right artificial shoulder joint; Z87.891 Personal history of nicotine dependence; Z83.3 Family history of diabetes mellitus; Z82.49 Family history of ischemic heart disease and other diseases of the circulatory system
CPT/HCPCS: 71250; 80048; 80053; 81003; 83605; 85025; 85027; 85610; 85730; 87040; 93970; 99202; 99281; 99285; G0378; J0692; J0696; J1815; J1940; J3010; J3370; J7030; J7050

== ENCOUNTER 2017-10-09 13:20 | Emergency (ER) | payer OTHER ==
[~2017-10-09] VITALS: Ht 167.6 cm; Wt 110.2 kg
[2017-10-09 16:52] LABS: INTER. NORMALIZED RATIO 2.7
[2017-10-09 17:49] VITALS: BP 148/66
== END 2017-10-09 17:57 | disposition home or self-care (01) ==
LOC: EME 13:20
PROVIDERS: Physician Assistant
DX: I80.02 Phlebitis and thrombophlebitis of superficial vessels of left lower extremity (principal); Z86.718 Personal history of other venous thrombosis and embolism; Z79.01 Long term (current) use of anticoagulants; E11.22 Type 2 diabetes mellitus with diabetic chronic kidney disease; Z79.4 Long term (current) use of insulin; I13.0 Hypertensive heart and chronic kidney disease with heart failure and stage 1 through stage 4 chronic kidney disease, or unspecified chronic kidney disease; I50.9 Heart failure, unspecified; N18.9 Chronic kidney disease, unspecified; Z87.891 Personal history of nicotine dependence; E78.5 Hyperlipidemia, unspecified; J44.9 Chronic obstructive pulmonary disease, unspecified; I25.2 Old myocardial infarction; F32.9 Major depressive disorder, single episode, unspecified; F41.9 Anxiety disorder, unspecified; K21.9 Gastro-esophageal reflux disease without esophagitis; Z95.0 Presence of cardiac pacemaker; Z96.643 Presence of artificial hip joint, bilateral; Z96.611 Presence of right artificial shoulder joint; M79.7 Fibromyalgia; Z88.8 Allergy status to other drugs, medicaments and biological substances
CPT/HCPCS: 81003; 85610; 93971; 99281; 99285

== ENCOUNTER 2017-10-16 00:02 | Inpatient (IN) | payer OTHER ==
[~2017-10-16] VITALS: Ht 167.6 cm; Wt 107.5 kg
[~2017-10-16 00:02] MED LIST changes: +VITAMIN D31000 UNI2 PO; -VITAMIN D5000 UNI1 PO
[2017-10-16 00:55] LABS: HEMATOCRIT 37.1 % (36.0-46.0); HEMOGLOBIN 11.4 G/DL (11.9-15.5); MCH 27.6 PG (29.0-34.0); MCHC 30.7 G/DL (30.0-36.0); MCV 89.8 FL (83-99); PLATELET COUNT 144 K/uL (156-360); RBC DIS.WIDTH-CV 17.2 % (11.8-14.6); RBC DIS.WIDTH-SD 56.6 % (39-53); RED BLOOD COUNT 4.13 M/uL (3.80-5.20); WHITE BLOOD COUNT 8.2 K/uL (4.1-10.2)
[2017-10-16 01:03] LABS: ALBUMIN 3.6 g/dL (3.2-4.8); CHLORIDE 103 mEq/L (99-109); POTASSIUM 4.8 mEq/L (3.7-5.4); SODIUM 138 mEq/L (136-147)
[2017-10-16 01:05] LABS: GLUCOSE 321 mg/dL (70-99)
[2017-10-16 01:06] LABS: TOTAL PROTEIN 6.4 g/dL (6.4-8.3)
[2017-10-16 01:07] LABS: TOTAL BILIRUBIN 0.4 mg/dL (0.0-1.0)
[2017-10-16 01:09] LABS: ALKALINE PHOSPHATASE 126 IU/L (3-129); CREATININE 1.5 mg/dL (0.6-1.3); GFR ESTIMATE (CALCULATED) 36 mL/min/
[2017-10-16 01:10] LABS: UREA NITROGEN (BUN) 47 mg/dL (9-23)
[2017-10-16 01:11] LABS: AST (GOT) 15 IU/L (2-34)
[2017-10-16 01:12] LABS: ALT (GPT) 17 IU/L (3-49); LIPASE 41 U/L (1.0-51.0)
[2017-10-16 01:15] LABS: TROP-I INTERPRETATION NEGATIVE; TROPONIN-I 0.01 ng/mL (0.0-0.30)
[2017-10-16] MEDS ORDERED: COUMADIN7.5 MG PO (03:19)
[2017-10-16 03:42] LABS: INTER. NORMALIZED RATIO 2.6
[2017-10-16 04:12] VITALS: BP 149/86
[2017-10-16 08:23] VITALS: BP 147/67
[2017-10-16 09:28] LABS: CHLORIDE 99 MEQ/L (99-109); CREATININE 1.3 MG/DL (0.6-1.3); GFR ESTIMATE (CALCULATED) 43 mL/min/; GLUCOSE 469 mg/dL (70-99); POTASSIUM 5.4 MEQ/L (3.7-5.4); SODIUM 135 MEQ/L (136-147); UREA NITROGEN (BUN) 48 mg/dL (9-23)
[2017-10-16] MEDS ORDERED: SERTRALINE HCL25 MG PO (12:25)
[2017-10-16] MEDS ORDERED: PRAVACHOL10 MG PO (12:25)
[2017-10-16] MEDS ORDERED: ADVAIR 250/501 DISK IH (12:25)
[2017-10-16] MEDS ORDERED: INHALER (12:28)
[2017-10-16 16:36] VITALS: BP 128/51
[2017-10-16 17:49] LABS: CHLORIDE 98 MEQ/L (99-109); POTASSIUM 5.1 MEQ/L (3.7-5.4); SODIUM 131 MEQ/L (136-147)
[2017-10-16 17:56] LABS: CREATININE 1.7 MG/DL (0.6-1.3); GFR ESTIMATE (CALCULATED) 32 mL/min/; UREA NITROGEN (BUN) 55 mg/dL (9-23)
[2017-10-16 18:09] LABS: GLUCOSE 634 mg/dL (70-99)
[2017-10-16 23:55] VITALS: BP 147/98
[2017-10-17 07:27] LABS: INTER. NORMALIZED RATIO 3.2
[2017-10-17 08:17] LABS: HEMATOCRIT 39.6 % (36.0-46.0); MCH 26.8 PG (29.0-34.0); MCHC 30.3 G/DL (30.0-36.0); MCV 88.6 FL (83-99); RBC DIS.WIDTH-CV 16.7 % (11.8-14.6); RBC DIS.WIDTH-SD 54.7 % (39-53); RED BLOOD COUNT 4.47 M/uL (3.80-5.20); WHITE BLOOD COUNT 10.3 K/uL (4.1-10.2)
[2017-10-17 08:18] LABS: PLATELET COUNT 196 K/uL (156-360)
[2017-10-17 08:41] LABS: CHLORIDE 100 MEQ/L (99-109); CREATININE 1.4 MG/DL (0.6-1.3); GFR ESTIMATE (CALCULATED) 40 mL/min/; POTASSIUM 5.5 MEQ/L (3.7-5.4); SODIUM 132 MEQ/L (136-147); UREA NITROGEN (BUN) 64 mg/dL (9-23)
[2017-10-17 08:45] LABS: GLUCOSE 408 mg/dL (70-99)
[2017-10-17 08:57] VITALS: BP 141/77
[2017-10-17 12:09] LABS: HEMOGLOBIN A1c (GLYCOHEMOGLOB) 10.5 % (Below 5.7)
[2017-10-17 18:17] VITALS: BP 139/60
[2017-10-17 23:13] LABS: HEMATOCRIT 35.2 % (36.0-46.0); HEMOGLOBIN 11.2 G/DL (11.9-15.5); MCV 88.2 FL (83-99)
[2017-10-17 23:16] LABS: C DIFF TOXIN NEGATIVE (NEGATIVE)
[2017-10-17 23:45] VITALS: BP 114/68
[2017-10-18 07:47] LABS: INTER. NORMALIZED RATIO 3.6
[2017-10-18 08:10] VITALS: BP 140/58
[2017-10-18 13:15] LABS: HEMATOCRIT 35.6 % (36.0-46.0); HEMOGLOBIN 11.1 G/DL (11.9-15.5); MCH 27.4 PG (29.0-34.0); MCHC 31.2 G/DL (30.0-36.0); MCV 87.9 FL (83-99); PLATELET COUNT 195 K/uL (156-360); RBC DIS.WIDTH-CV 16.9 % (11.8-14.6); RBC DIS.WIDTH-SD 54.4 % (39-53); RED BLOOD COUNT 4.05 M/uL (3.80-5.20); WHITE BLOOD COUNT 12.3 K/uL (4.1-10.2)
[2017-10-18 13:57] LABS: CHLORIDE 104 MEQ/L (99-109); CREATININE 1.3 MG/DL (0.6-1.3); GFR ESTIMATE (CALCULATED) 43 mL/min/; GLUCOSE 209 mg/dL (70-99); POTASSIUM 4.9 MEQ/L (3.7-5.4); SODIUM 135 MEQ/L (136-147); UREA NITROGEN (BUN) 76 mg/dL (9-23)
[2017-10-18 17:24] VITALS: BP 151/74
[2017-10-18 23:24] VITALS: BP 146/73
[2017-10-19 07:49] VITALS: BP 126/69
[2017-10-19 08:04] LABS: HEMATOCRIT 38.5 % (36.0-46.0); HEMOGLOBIN 11.6 G/DL (11.9-15.5); MCH 26.7 PG (29.0-34.0); MCHC 30.1 G/DL (30.0-36.0); MCV 88.7 FL (83-99); PLATELET COUNT 194 K/uL (156-360); RBC DIS.WIDTH-CV 16.8 % (11.8-14.6); RBC DIS.WIDTH-SD 55.2 % (39-53); RED BLOOD COUNT 4.34 M/uL (3.80-5.20); WHITE BLOOD COUNT 9.8 K/uL (4.1-10.2)
[2017-10-19 08:22] LABS: INTER. NORMALIZED RATIO 2.9
[2017-10-19 08:23] LABS: CHLORIDE 106 MEQ/L (99-109); CREATININE 1.4 MG/DL (0.6-1.3); GFR ESTIMATE (CALCULATED) 40 mL/min/; GLUCOSE 156 mg/dL (70-99); POTASSIUM 5.1 MEQ/L (3.7-5.4); SODIUM 139 MEQ/L (136-147); UREA NITROGEN (BUN) 75 mg/dL (9-23)
[2017-10-19] MEDS ORDERED: AMOX TR-K CLV1 EAC4 PO (12:38)
[2017-10-19] MEDS ORDERED: ACIDOPHILUS LA1 EACH PO (12:38)
[2017-10-19] MEDS ORDERED: COUMADIN2.5 MG PO (12:38)
[2017-10-19] MEDS ORDERED: ADVAIR 250/501 DISK IH (12:38)
[2017-10-19] MEDS ORDERED: PREDNISONE10 MG PO (12:38)
[2017-10-19] MEDS ORDERED: LEVEMIR FL100 UNIT/1 SC (12:41)
[2017-10-19] MEDS ORDERED: NOVOLOG PE100 UNITS/ SC (12:41)
[2017-10-19] MEDS ORDERED: SPIRIVA RESPIMAT4 GM IH (12:41)
== END 2017-10-19 16:44 | disposition home health service (06) | DRG 190 ==
LOC: EME 00:02 → EDOF 02:44 → 5SOUTH 02:44 → ENRESERV 02:49 → 5SOUTH 03:36
PROVIDERS: Emergency Medicine; Hospitalist; Physician Assistant
DX: J44.1 Chronic obstructive pulmonary disease with (acute) exacerbation (principal); J96.21 Acute and chronic respiratory failure with hypoxia; Z99.81 Dependence on supplemental oxygen; E11.65 Type 2 diabetes mellitus with hyperglycemia; I48.91 Unspecified atrial fibrillation; I13.0 Hypertensive heart and chronic kidney disease with heart failure and stage 1 through stage 4 chronic kidney disease, or unspecified chronic kidney disease; I50.9 Heart failure, unspecified; N18.3 Chronic kidney disease, stage 3 (moderate); E11.22 Type 2 diabetes mellitus with diabetic chronic kidney disease; R19.7 Diarrhea, unspecified; T37.8X5A Adverse effect of other specified systemic anti-infectives and antiparasitics, initial encounter; Z66 Do not resuscitate; E11.51 Type 2 diabetes mellitus with diabetic peripheral angiopathy without gangrene; E11.40 Type 2 diabetes mellitus with diabetic neuropathy, unspecified; E78.5 Hyperlipidemia, unspecified; M79.7 Fibromyalgia; M10.9 Gout, unspecified; M54.5 Low back pain; G89.29 Other chronic pain; E66.9 Obesity, unspecified; Z68.38 Body mass index [BMI] 38.0-38.9, adult; J98.11 Atelectasis; K21.9 Gastro-esophageal reflux disease without esophagitis; I25.2 Old myocardial infarction; F41.9 Anxiety disorder, unspecified; F32.9 Major depressive disorder, single episode, unspecified; Z87.891 Personal history of nicotine dependence; Z86.718 Personal history of other venous thrombosis and embolism; Z77.090 Contact with and (suspected) exposure to asbestos; Z79.4 Long term (current) use of insulin; Z79.01 Long term (current) use of anticoagulants; Z79.899 Other long term (current) drug therapy; Z95.0 Presence of cardiac pacemaker; Z95.820 Peripheral vascular angioplasty status with implants and grafts; Z96.611 Presence of right artificial shoulder joint; Z96.643 Presence of artificial hip joint, bilateral; Z89.429 Acquired absence of other toe(s), unspecified side
CPT/HCPCS: 71046; 80048; 80048 91; 80053; 82948; 83036; 83690; 83880; 84484; 85014; 85018; 85027; 85610; 86850; 86900; 86901; 87070; 87205; 87493; 87502; 94640; 94640 76; 94667; 94668; 94760; 94799; 99202; 99281; 99285; J1815; J1956; J2920; J2930; J7512

== ENCOUNTER 2017-11-05 19:17 | Inpatient (IN) | payer OTHER ==
[~2017-11-05] VITALS: Ht 170.2 cm; Wt 110.6 kg
[~2017-11-05 19:17] MED LIST changes: +ACIDOPHILUS LA1 EACH PO; +COUMADIN2.5 MG PO; +INHALER; +SERTRALINE HCL25 MG PO
[2017-11-05 20:46] LABS: HEMOGLOBIN 10.4 G/DL (11.9-15.5); MCH 27.3 PG (29.0-34.0); MCHC 30.6 G/DL (30.0-36.0); MCV 89.2 FL (83-99); PLATELET COUNT 181 K/uL (156-360); RBC DIS.WIDTH-CV 17.6 % (11.8-14.6); RBC DIS.WIDTH-SD 57.5 % (39-53); RED BLOOD COUNT 3.81 M/uL (3.80-5.20); WHITE BLOOD COUNT 10.6 K/uL (4.1-10.2)
[2017-11-05 20:53] LABS: CHLORIDE 103 mEq/L (99-109); POTASSIUM 4.5 mEq/L (3.7-5.4); SODIUM 139 mEq/L (136-147)
[2017-11-05 20:55] LABS: GLUCOSE 136 mg/dL (70-99)
[2017-11-05 20:59] LABS: CREATININE 2.1 mg/dL (0.6-1.3); GFR ESTIMATE (CALCULATED) 25 mL/min/
[2017-11-05 21:00] LABS: UREA NITROGEN (BUN) 54 mg/dL (9-23)
[2017-11-05 23:30] LABS: INTER. NORMALIZED RATIO 2.5
[2017-11-06 03:50] VITALS: BP 145/64
[2017-11-06 08:00] VITALS: BP 139/65
[2017-11-06 09:33] LABS: INTER. NORMALIZED RATIO 2.5
[2017-11-06] MEDS ORDERED: SPIRIVA RESPIMAT4 GM IH (11:02)
[2017-11-06] MEDS ORDERED: COUMADIN5 MG PO (11:03)
[2017-11-06] MEDS ORDERED: ALBUTEROL2.5 MG/3 M IH (11:03)
[2017-11-06] MEDS ORDERED: NOVOLOG PE100 UNITS/ SC (11:06)
[2017-11-06 12:48] LABS: CHLORIDE 103 MEQ/L (99-109); POTASSIUM 4.5 MEQ/L (3.7-5.4); SODIUM 139 MEQ/L (136-147); UREA NITROGEN (BUN) 42 mg/dL (9-23)
[2017-11-06 12:49] LABS: CREATININE 1.2 MG/DL (0.6-1.3); GFR ESTIMATE (CALCULATED) 47 mL/min/; GLUCOSE 277 mg/dL (70-99)
[2017-11-06 12:57] LABS: HEMATOCRIT 33.7 % (36.0-46.0); HEMOGLOBIN 10.1 G/DL (11.9-15.5); PLATELET COUNT 166 K/uL (156-360); RBC DIS.WIDTH-CV 17.9 % (11.8-14.6); RBC DIS.WIDTH-SD 61.4 % (39-53); RED BLOOD COUNT 3.61 M/uL (3.80-5.20)
[2017-11-06 13:06] LABS: MCV 93.4 FL (83-99)
[2017-11-06 15:51] VITALS: BP 117/56
[2017-11-07 00:02] VITALS: BP 120/72
[2017-11-07 06:10] LABS: BASOPHIL (%) 0.2 % (0-1); EOSINOPHIL (%) 2.4 % (0-5); EOSINOPHIL COUNT 0.2 K/uL (0-0.3); HEMATOCRIT 30.5 % (36.0-46.0); HEMOGLOBIN 9.2 G/DL (11.9-15.5); IMMATURE GRANULOCYTE (%) 1.1 % (0.0-0.7); LYMPHOCYTE (%) 13.7 % (15-42); LYMPHOCYTE COUNT 1.2 K/uL (1.0-2.8); MCH 27.1 PG (29.0-34.0); MCHC 30.2 G/DL (30.0-36.0); MONOCYTE (%) 7.3 % (3-12); MONOCYTE COUNT 0.7 K/uL (0-0.8); NEUTROPHIL (%) 75.3 % (45-76); NEUTROPHIL COUNT 6.8 K/uL (1.8-6.4); PLATELET COUNT 185 K/uL (156-360); RBC DIS.WIDTH-CV 17.5 % (11.8-14.6); RBC DIS.WIDTH-SD 57.7 % (39-53); RED BLOOD COUNT 3.39 M/uL (3.80-5.20)
[2017-11-07 06:38] LABS: CHLORIDE 104 MEQ/L (99-109); CREATININE 1.2 MG/DL (0.6-1.3); GFR ESTIMATE (CALCULATED) 47 mL/min/; POTASSIUM 4.6 MEQ/L (3.7-5.4); SODIUM 136 MEQ/L (136-147); UREA NITROGEN (BUN) 42 mg/dL (9-23)
[2017-11-07 06:42] LABS: GLUCOSE 103 mg/dL (70-99)
[2017-11-07 07:25] VITALS: BP 147/65
[2017-11-07 09:06] LABS: INTER. NORMALIZED RATIO 2.4
[2017-11-07 15:31] VITALS: BP 138/61
[2017-11-07 23:34] VITALS: BP 136/87
[2017-11-08 06:13] LABS: HEMOGLOBIN 9.2 G/DL (11.9-15.5); MCH 26.7 PG (29.0-34.0); MCHC 29.7 G/DL (30.0-36.0); MCV 90.1 FL (83-99); PLATELET COUNT 197 K/uL (156-360); RBC DIS.WIDTH-CV 17.5 % (11.8-14.6); RBC DIS.WIDTH-SD 57.2 % (39-53); RED BLOOD COUNT 3.44 M/uL (3.80-5.20); WHITE BLOOD COUNT 7.6 K/uL (4.1-10.2)
[2017-11-08 06:34] LABS: INTER. NORMALIZED RATIO 2.2
[2017-11-08 09:07] VITALS: BP 123/58
[2017-11-08] MEDS ORDERED: CEPHALEXIN500 MG PO (11:25)
[2017-11-08] MEDS ORDERED: TRAMADOL HCL50 MG PO (11:25)
[2017-11-08] MEDS ORDERED: LEVEMIR FL100 UNIT/1 SC (11:26)
== END 2017-11-08 14:01 | disposition home or self-care (01) | DRG 683 ==
LOC: EME 19:17 → EDOF 11-06 01:39 → 5EAST 11-06 01:39 → ENRESERV 11-06 01:42 → 5EAST 11-06 02:57 → ENPENDDIS 11-08 → 5EAST 11-08 14:01
PROVIDERS: Hospitalist; Internal Medicine; Physician Assistant Medical
DX: N17.9 Acute kidney failure, unspecified (principal); L03.116 Cellulitis of left lower limb; J44.1 Chronic obstructive pulmonary disease with (acute) exacerbation; L03.115 Cellulitis of right lower limb; I48.0 Paroxysmal atrial fibrillation; M19.90 Unspecified osteoarthritis, unspecified site; I25.10 Atherosclerotic heart disease of native coronary artery without angina pectoris; N18.3 Chronic kidney disease, stage 3 (moderate); E11.51 Type 2 diabetes mellitus with diabetic peripheral angiopathy without gangrene; I12.9 Hypertensive chronic kidney disease with stage 1 through stage 4 chronic kidney disease, or unspecified chronic kidney disease; J44.9 Chronic obstructive pulmonary disease, unspecified; E78.5 Hyperlipidemia, unspecified; I87.8 Other specified disorders of veins; G89.29 Other chronic pain; E66.01 Morbid (severe) obesity due to excess calories; E11.9 Type 2 diabetes mellitus without complications; G25.81 Restless legs syndrome; I13.0 Hypertensive heart and chronic kidney disease with heart failure and stage 1 through stage 4 chronic kidney disease, or unspecified chronic kidney disease; E11.22 Type 2 diabetes mellitus with diabetic chronic kidney disease; I27.20 Pulmonary hypertension, unspecified; Z96.643 Presence of artificial hip joint, bilateral; Z96.611 Presence of right artificial shoulder joint; I89.0 Lymphedema, not elsewhere classified; I25.2 Old myocardial infarction; Z95.0 Presence of cardiac pacemaker; Z87.891 Personal history of nicotine dependence; Z79.4 Long term (current) use of insulin; Z89.422 Acquired absence of other left toe(s); Z68.38 Body mass index [BMI] 38.0-38.9, adult; Z86.718 Personal history of other venous thrombosis and embolism; E11.40 Type 2 diabetes mellitus with diabetic neuropathy, unspecified; I87.2 Venous insufficiency (chronic) (peripheral); Z86.72 Personal history of thrombophlebitis; Z83.3 Family history of diabetes mellitus; Z82.49 Family history of ischemic heart disease and other diseases of the circulatory system; I50.32 Chronic diastolic (congestive) heart failure
CPT/HCPCS: 80048; 82948; 85025; 85027; 85610; 86850; 86900; 86901; 87641; 93971; 94640; 94640 76; 94760; 99202; J0690; J1815; J7030

== ENCOUNTER 2018-01-23 17:16 | Emergency (ER) | payer OTHER ==
[~2018-01-23] VITALS: Ht 167.6 cm; Wt 112.4 kg
[2018-01-23 19:16] LABS: HEMATOCRIT 41.6 % (36.0-46.0); HEMOGLOBIN 12.7 G/DL (11.9-15.5); MCH 27.3 PG (29.0-34.0); MCHC 30.5 G/DL (30.0-36.0); MCV 89.3 FL (83-99); PLATELET COUNT 207 K/uL (156-360); RBC DIS.WIDTH-CV 16.8 % (11.8-14.6); RBC DIS.WIDTH-SD 54.4 % (39-53); RED BLOOD COUNT 4.66 M/uL (3.80-5.20); WHITE BLOOD COUNT 12.5 K/uL (4.1-10.2)
[2018-01-23 19:21] LABS: INTER. NORMALIZED RATIO 2.1
[2018-01-23 19:28] LABS: CHLORIDE 105 mEq/L (99-109); POTASSIUM 4.7 mEq/L (3.7-5.4); SODIUM 142 mEq/L (136-147)
[2018-01-23 19:30] LABS: GLUCOSE 163 mg/dL (70-99)
[2018-01-23 19:34] LABS: CREATININE 1.4 mg/dL (0.6-1.3); GFR ESTIMATE (CALCULATED) 40 mL/min/
[2018-01-23 19:35] LABS: UREA NITROGEN (BUN) 67 mg/dL (9-23)
[2018-01-23 20:46] VITALS: BP 131/65
== END 2018-01-23 20:47 | disposition home or self-care (01) ==
LOC: EME 17:16
PROVIDERS: Nurse Practitioner Family
DX: I13.0 Hypertensive heart and chronic kidney disease with heart failure and stage 1 through stage 4 chronic kidney disease, or unspecified chronic kidney disease (principal); I50.9 Heart failure, unspecified; N18.9 Chronic kidney disease, unspecified; Z79.01 Long term (current) use of anticoagulants; E78.5 Hyperlipidemia, unspecified; F32.9 Major depressive disorder, single episode, unspecified; F41.9 Anxiety disorder, unspecified; J44.9 Chronic obstructive pulmonary disease, unspecified; I25.2 Old myocardial infarction; K21.9 Gastro-esophageal reflux disease without esophagitis; M79.7 Fibromyalgia; M10.9 Gout, unspecified; Z86.718 Personal history of other venous thrombosis and embolism; Z95.0 Presence of cardiac pacemaker; Z96.643 Presence of artificial hip joint, bilateral; Z96.611 Presence of right artificial shoulder joint; Z87.891 Personal history of nicotine dependence
CPT/HCPCS: 71046; 80048; 83880; 85027; 85610; 85730; 93005; 99281; 99284

== ENCOUNTER 2018-02-17 09:46 | Emergency (ER) | payer OTHER, BC ==
[~2018-02-17] VITALS: Ht 167.6 cm; Wt 112.6 kg
[2018-02-17 10:59] LABS: HEMATOCRIT 36.2 % (36.0-46.0); HEMOGLOBIN 11.4 G/DL (11.9-15.5); MCH 27.7 PG (29.0-34.0); MCHC 31.5 G/DL (30.0-36.0); MCV 88.1 FL (83-99); PLATELET COUNT 185 K/uL (156-360); RBC DIS.WIDTH-CV 16.5 % (11.8-14.6); RBC DIS.WIDTH-SD 53.6 % (39-53); RED BLOOD COUNT 4.11 M/uL (3.80-5.20); WHITE BLOOD COUNT 13.2 K/uL (4.1-10.2)
[2018-02-17 11:17] LABS: CHLORIDE 104 mEq/L (99-109); POTASSIUM 3.8 mEq/L (3.7-5.4); SODIUM 143 mEq/L (136-147)
[2018-02-17 11:18] LABS: GLUCOSE 87 mg/dL (70-99)
[2018-02-17 11:22] LABS: CREATININE 1.3 mg/dL (0.6-1.3); GFR ESTIMATE (CALCULATED) 43 mL/min/
[2018-02-17 11:23] LABS: UREA NITROGEN (BUN) 60 mg/dL (9-23)
[2018-02-17 11:52] LABS: INTER. NORMALIZED RATIO 1.5
[2018-02-17 11:55] LABS: PTT 28.4 SEC (25-37)
[2018-02-17 12:08] LABS: TROP-I INTERPRETATION NEGATIVE; TROPONIN-I 0.02 ng/mL (0.0-0.30)
[2018-02-17 17:01] VITALS: BP 142/59
== END 2018-02-17 17:06 | disposition home or self-care (01) ==
LOC: EME 09:46
PROVIDERS: Emergency Medicine
DX: R06.00 Dyspnea, unspecified (principal); R91.8 Other nonspecific abnormal finding of lung field; R93.7 Abnormal findings on diagnostic imaging of other parts of musculoskeletal system; R94.31 Abnormal electrocardiogram [ECG] [EKG]; I13.0 Hypertensive heart and chronic kidney disease with heart failure and stage 1 through stage 4 chronic kidney disease, or unspecified chronic kidney disease; I50.9 Heart failure, unspecified; N19 Unspecified kidney failure; E11.22 Type 2 diabetes mellitus with diabetic chronic kidney disease; J44.9 Chronic obstructive pulmonary disease, unspecified; K21.9 Gastro-esophageal reflux disease without esophagitis; E78.5 Hyperlipidemia, unspecified; I25.2 Old myocardial infarction; M79.7 Fibromyalgia; M10.9 Gout, unspecified; G62.9 Polyneuropathy, unspecified; F32.9 Major depressive disorder, single episode, unspecified; F41.9 Anxiety disorder, unspecified; Z79.01 Long term (current) use of anticoagulants; Z79.4 Long term (current) use of insulin; Z95.0 Presence of cardiac pacemaker; Z87.891 Personal history of nicotine dependence; Z87.2 Personal history of diseases of the skin and subcutaneous tissue; Z86.718 Personal history of other venous thrombosis and embolism; Z87.442 Personal history of urinary calculi; Z96.643 Presence of artificial hip joint, bilateral; Z96.611 Presence of right artificial shoulder joint; Z98.890 Other specified postprocedural states; Z85.9 Personal history of malignant neoplasm, unspecified; Z90.49 Acquired absence of other specified parts of digestive tract; Z89.429 Acquired absence of other toe(s), unspecified side; Z91.02 Food additives allergy status; Z88.8 Allergy status to other drugs, medicaments and biological substances; Z91.013 Allergy to seafood
CPT/HCPCS: 71046; 71275; 80048; 82948; 83880; 84484; 85027; 85610; 85730; 93005; 93970; 99281; 99285

== ENCOUNTER 2018-03-25 03:28 | Observation (INO) | payer OTHER, BC ==
[~2018-03-25] VITALS: Ht 167.6 cm; Wt 113.5 kg
[2018-03-25 04:07] LABS: BASOPHIL (%) 0.3 % (0-1); EOSINOPHIL COUNT 0.2 K/uL (0-0.3); HEMATOCRIT 42.3 % (36.0-46.0); HEMOGLOBIN 13.3 G/DL (11.9-15.5); IMMATURE GRANULOCYTE (%) 0.5 % (0.0-0.7); LYMPHOCYTE (%) 7.5 % (15-42); LYMPHOCYTE COUNT 0.9 K/uL (1.0-2.8); MCHC 31.4 G/DL (30.0-36.0); MONOCYTE (%) 5.6 % (3-12); MONOCYTE COUNT 0.7 K/uL (0-0.8); NEUTROPHIL (%) 84.1 % (45-76); NEUTROPHIL COUNT 10.3 K/uL (1.8-6.4); PLATELET COUNT 197 K/uL (156-360); RBC DIS.WIDTH-CV 16.7 % (11.8-14.6); RBC DIS.WIDTH-SD 52.5 % (39-53); RED BLOOD COUNT 4.92 M/uL (3.80-5.20); WHITE BLOOD COUNT 12.3 K/uL (4.1-10.2)
[2018-03-25 04:15] LABS: INTER. NORMALIZED RATIO 1.9
[2018-03-25 04:18] LABS: ALBUMIN 4.2 g/dL (3.2-4.8); CHLORIDE 102 mEq/L (99-109); POTASSIUM 3.5 mEq/L (3.7-5.4); SODIUM 140 mEq/L (136-147)
[2018-03-25 04:20] LABS: GLUCOSE 175 mg/dL (70-99); TOTAL PROTEIN 7.5 g/dL (6.4-8.3)
[2018-03-25 04:22] LABS: TOTAL BILIRUBIN 0.5 mg/dL (0.0-1.0)
[2018-03-25 04:24] LABS: ALKALINE PHOSPHATASE 130 IU/L (3-129); CREATININE 1.5 mg/dL (0.6-1.3); GFR ESTIMATE (CALCULATED) 36 mL/min/
[2018-03-25 04:25] LABS: UREA NITROGEN (BUN) 39 mg/dL (9-23)
[2018-03-25 04:26] LABS: AST (GOT) 18 IU/L (2-34); DIRECT BILIRUBIN 0.2 mg/dL (0.0-0.3)
[2018-03-25 04:27] LABS: ALT (GPT) 17 IU/L (3-49); LIPASE 46 U/L (1.0-51.0)
[2018-03-25 07:26] VITALS: BP 153/71
[2018-03-25 09:11] LABS: STOOL OCCULT BLD 1ST SPECIMEN POSITIVE
[2018-03-25 10:55] LABS: C DIFF TOXIN NEGATIVE (NEGATIVE)
[2018-03-25] MEDS ORDERED: LEVEMIR FL100 UNIT/1 SC (11:10)
[2018-03-25] MEDS ORDERED: BYDUREON P2 MG/0.65 SC (11:13)
[2018-03-25] MEDS ORDERED: CALCITRIOL0.25 MCG PO (11:13)
[2018-03-25] MEDS ORDERED: MERIBIN5 MG PO (11:13)
[2018-03-25] MEDS ORDERED: MAGNESIUM27 MG PO (11:14)
[2018-03-25 11:33] LABS: HEMATOCRIT 39.9 % (36.0-46.0); HEMOGLOBIN 12.1 G/DL (11.9-15.5); MCV 87.5 FL (83-99)
[2018-03-25 16:14] VITALS: BP 155/72
[2018-03-25 17:14] LABS: APPEARANCE CLEAR ((CLEAR)); BILIRUBIN NEGATIVE; BLOOD NEGATIVE; COLOR YELLOW ((YELLOW)); GLUCOSE (STRIP) NEGATIVE; KETONES NEGATIVE; LEUKOCYTES NEGATIVE; NITRITE NEGATIVE; PROTEIN (STRIP) 30; SPECIFIC GRAVITY 1.016 (1.000-1.030); UROBILINOGEN 0.2 MG/DL (0.2-1.0)
[2018-03-25 18:46] LABS: HEMATOCRIT 38.3 % (36.0-46.0); HEMOGLOBIN 11.5 G/DL (11.9-15.5); MCV 87.8 FL (83-99)
[2018-03-25 19:56] VITALS: BP 153/68
[2018-03-25 23:17] VITALS: BP 137/66
[2018-03-26 04:01] VITALS: BP 144/58
[2018-03-26 06:37] LABS: BASOPHIL (%) 0.2 % (0-1); EOSINOPHIL (%) 5.2 % (0-5); EOSINOPHIL COUNT 0.3 K/uL (0-0.3); HEMATOCRIT 37.8 % (36.0-46.0); HEMOGLOBIN 11.4 G/DL (11.9-15.5); IMMATURE GRANULOCYTE (%) 0.5 % (0.0-0.7); LYMPHOCYTE (%) 14.9 % (15-42); LYMPHOCYTE COUNT 0.9 K/uL (1.0-2.8); MCHC 30.2 G/DL (30.0-36.0); MCV 89.4 FL (83-99); MONOCYTE COUNT 0.5 K/uL (0-0.8); NEUTROPHIL (%) 70.2 % (45-76); NEUTROPHIL COUNT 4.1 K/uL (1.8-6.4); PLATELET COUNT 174 K/uL (156-360); RBC DIS.WIDTH-CV 17.1 % (11.8-14.6); RBC DIS.WIDTH-SD 55.8 % (39-53); RED BLOOD COUNT 4.23 M/uL (3.80-5.20); WHITE BLOOD COUNT 5.8 K/uL (4.1-10.2)
[2018-03-26 07:00] LABS: ALBUMIN 3.6 G/DL (3.2-4.8); CHLORIDE 103 MEQ/L (99-109); CREATININE 1.3 MG/DL (0.6-1.3); GFR ESTIMATE (CALCULATED) 43 mL/min/; PHOSPHORUS 2.7 mg/dL (2.5-4.9); POTASSIUM 3.8 MEQ/L (3.7-5.4); SODIUM 140 MEQ/L (136-147); UREA NITROGEN (BUN) 28 mg/dL (9-23)
[2018-03-26 07:01] LABS: GLUCOSE 98 mg/dL (70-99)
[2018-03-26 07:26] LABS: HEMATOCRIT 38.5 % (36.0-46.0); HEMOGLOBIN 11.6 G/DL (11.9-15.5); MCH 26.9 PG (29.0-34.0); MCHC 30.1 G/DL (30.0-36.0); MCV 89.3 FL (83-99); PLATELET COUNT 187 K/uL (156-360); RBC DIS.WIDTH-CV 16.8 % (11.8-14.6); RBC DIS.WIDTH-SD 55.1 % (39-53); RED BLOOD COUNT 4.31 M/uL (3.80-5.20); WHITE BLOOD COUNT 5.9 K/uL (4.1-10.2)
[2018-03-26 08:46] VITALS: BP 132/58
[2018-03-26 12:14] VITALS: BP 146/66
[2018-03-26 17:31] LABS: STOOL OCCULT BLD 1ST SPECIMEN NEGATIVE
[2018-03-26 20:23] VITALS: BP 137/62
[2018-03-27 00:46] VITALS: BP 165/99
[2018-03-27 04:18] VITALS: BP 125/60
[2018-03-27 04:26] LABS: BASOPHIL (%) 0.1 % (0-1); EOSINOPHIL (%) 3.1 % (0-5); EOSINOPHIL COUNT 0.3 K/uL (0-0.3); HEMATOCRIT 33.7 % (36.0-46.0); HEMOGLOBIN 10.5 G/DL (11.9-15.5); IMMATURE GRANULOCYTE (%) 0.5 % (0.0-0.7); LYMPHOCYTE (%) 11.2 % (15-42); MCH 27.6 PG (29.0-34.0); MCHC 31.2 G/DL (30.0-36.0); MCV 88.5 FL (83-99); MONOCYTE (%) 7.4 % (3-12); MONOCYTE COUNT 0.7 K/uL (0-0.8); NEUTROPHIL (%) 77.7 % (45-76); NEUTROPHIL COUNT 6.8 K/uL (1.8-6.4); PLATELET COUNT 156 K/uL (156-360); RBC DIS.WIDTH-CV 16.9 % (11.8-14.6); RBC DIS.WIDTH-SD 54.7 % (39-53); RED BLOOD COUNT 3.81 M/uL (3.80-5.20); WHITE BLOOD COUNT 8.7 K/uL (4.1-10.2)
[2018-03-27 04:35] LABS: CHLORIDE 109 mEq/L (99-109); POTASSIUM 3.7 mEq/L (3.7-5.4); SODIUM 138 mEq/L (136-147)
[2018-03-27 04:39] LABS: GLUCOSE 199 mg/dL (70-99)
[2018-03-27 04:40] LABS: CREATININE 1.2 mg/dL (0.6-1.3); GFR ESTIMATE (CALCULATED) 47 mL/min/
[2018-03-27 04:41] LABS: UREA NITROGEN (BUN) 22 mg/dL (9-23)
[2018-03-27] MEDS ORDERED: METRONIDAZOLE500 MG PO (06:44)
[2018-03-27] MEDS ORDERED: ONDANSETRON ODT4 MG PO (06:46)
[2018-03-27] MEDS ORDERED: FLORASTOR250 MG PO (06:46)
[2018-03-27 07:36] VITALS: BP 140/65
== END 2018-03-27 09:14 | disposition home or self-care (01) ==
LOC: EME 03:28 → EDOF 05:54 → 4SOUTH 05:54 → EDOF 05:54 → ENRESERV 06:18 → 4SOUTH 07:15
PROVIDERS: Internal Medicine; Internal Medicine Gastroenterology; Physician Assistant; Physician Assistant Medical
DX: K52.9 Noninfective gastroenteritis and colitis, unspecified (principal); K92.1 Melena; R11.2 Nausea with vomiting, unspecified; I71.4 Abdominal aortic aneurysm, without rupture; N17.9 Acute kidney failure, unspecified; E87.6 Hypokalemia; I48.0 Paroxysmal atrial fibrillation; Z79.01 Long term (current) use of anticoagulants; J44.9 Chronic obstructive pulmonary disease, unspecified; Z99.81 Dependence on supplemental oxygen; R63.0 Anorexia; R63.4 Abnormal weight loss; D64.9 Anemia, unspecified; K31.7 Polyp of stomach and duodenum; R79.1 Abnormal coagulation profile; K29.80 Duodenitis without bleeding; K57.30 Diverticulosis of large intestine without perforation or abscess without bleeding; D12.2 Benign neoplasm of ascending colon; D12.0 Benign neoplasm of cecum; D12.3 Benign neoplasm of transverse colon; D12.5 Benign neoplasm of sigmoid colon; K64.8 Other hemorrhoids; G89.29 Other chronic pain; M79.7 Fibromyalgia; I25.10 Atherosclerotic heart disease of native coronary artery without angina pectoris; I44.2 Atrioventricular block, complete; M19.90 Unspecified osteoarthritis, unspecified site; Z95.0 Presence of cardiac pacemaker; I13.0 Hypertensive heart and chronic kidney disease with heart failure and stage 1 through stage 4 chronic kidney disease, or unspecified chronic kidney disease; I50.9 Heart failure, unspecified; N18.3 Chronic kidney disease, stage 3 (moderate); E11.22 Type 2 diabetes mellitus with diabetic chronic kidney disease; E11.40 Type 2 diabetes mellitus with diabetic neuropathy, unspecified; E11.51 Type 2 diabetes mellitus with diabetic peripheral angiopathy without gangrene; E11.65 Type 2 diabetes mellitus with hyperglycemia; I89.0 Lymphedema, not elsewhere classified; E66.01 Morbid (severe) obesity due to excess calories; Z68.38 Body mass index [BMI] 38.0-38.9, adult; I27.20 Pulmonary hypertension, unspecified; Z86.718 Personal history of other venous thrombosis and embolism; E78.5 Hyperlipidemia, unspecified; M10.9 Gout, unspecified; I87.8 Other specified disorders of veins; G25.81 Restless legs syndrome; E55.9 Vitamin D deficiency, unspecified; N25.81 Secondary hyperparathyroidism of renal origin; Z96.611 Presence of right artificial shoulder joint; Z89.422 Acquired absence of other left toe(s); Z96.643 Presence of artificial hip joint, bilateral; Z87.891 Personal history of nicotine dependence; Z82.49 Family history of ischemic heart disease and other diseases of the circulatory system; Z83.3 Family history of diabetes mellitus; Z79.4 Long term (current) use of insulin; K21.9 Gastro-esophageal reflux disease without esophagitis; R29.6 Repeated falls; Z91.013 Allergy to seafood; Z91.018 Allergy to other foods; Z88.8 Allergy status to other drugs, medicaments and biological substances; Z66 Do not resuscitate
CPT/HCPCS: 74176; 80048; 80048 91; 80069; 80076; 81003; 82010; 82272; 82800; 82948; 83690; 85014; 85018; 85025; 85027; 85610; 87493; 87506; 88305; 88341 TC; 88342 TC; 94640; 94799; 99281; 99285; G0378; J0500; J1815; J2250; J2405; J3010; J3480; J7030; S0030